=== PATIENT | male | born 1980 | race American Indian/Alaskan Native ===

== ENCOUNTER 2018-04-07 23:21 | Emergency (ER) | payer MEDICAID ==
[2018-04-08] MEDS ORDERED: ASPIRIN PO ONE (00:38)
[2018-04-08 00:56] LABS: Basophils # (Auto) 0.1 K/mm3 (0.0-0.1); Basophils % (Auto) 0.7 % (0.0-1.8); Eosinophils # (Auto) 0.1 K/mm3 (0.0-0.4); Eosinophils % (Auto) 1.5 % (0.0-4.3); Hematocrit 35.6 % (35.5-45.6); Lymphocytes # (Auto) 2.6 K/mm3 (1.2-5.4); Lymphocytes % (Auto) 34.7 % (13.4-35.0); Mean Corpuscular HGB Conc 34 % (32-34); Mean Corpuscular Hemoglobin 30 pg (28-32); Mean Corpuscular Volume 89 fl (84-94); Monocytes # (Auto) 0.8 K/mm3 (0.0-0.8); Monocytes % (Auto) 10.1 % (0.0-7.3); Platelet Count 245 K/mm3 (140-440); Red Blood Count 4.02 M/mm3 (3.65-5.03); Red Cell Distribution Width 15.2 % (13.2-15.2)
[2018-04-08 01:15] LABS: BUN/Creatinine Ratio 13; Blood Urea Nitrogen 12 mg/dL (9-20); Calcium 9.6 mg/dL (8.4-10.2); Hemolysis Index 6
[2018-04-08 01:17] LABS: INR 0.96 (0.87-1.13)
--- NOTE | 2018-04-08 08:00 | Emergency Department Report ---
<JOHANNA JIM - Last Filed: 04/08/18 09:04> ED Chest Pain HPI - General Chief Complaint: Chest Pain Stated Complaint: CP Time Seen by Provider: 04/08/18 08:00 - History of Present Illness Initial Comments: Attending physician note, 0900 hrs. I have seen and examined this chronically ill gentleman with history of pre- existing DVT who has been on apex event for the past 3 years, and who is complaining today of discomfort in his left anterolateral chest, which is up a [id number] aching nature, increased with some movement or deep breathing, but without secondary cardiac symptoms, no diaphoresis, and no nausea or vomiting. He also has secondary discomfort in his lower extremities, although this is somewhat chronic, as he has some chronic swelling of the extremities, and reports that he takes medication for blood pressure, and one of these is a diuretic. He also has schizophrenia/schizoaffective disorder, which requires him to live in a fdc, and his caregiver is with him, with a past medical history of his routine medications, which include antihypertensive, diuretic, and antipsychotic medications. Patient is clinically stable of examination, he is quite obese, but lungs are essentially clear to auscultation, abdomen is benign, and legs show chronic obesity and generalized swelling secondary to chronic venous insufficiency, with secondary skin changes and discoloration, and mild 1+ pedal edema as well. He likely has vascular insufficiency as cause of his swelling, which will likely make this recurrent, and this is aggravated by his obesity as well. Venous Doppler ultrasound scanning shows chronic insufficiency of both lower extremities, which is apparently fairly extensive, but no acute findings and no occlusion. He is currently adequately managed with aixaban, will be given additional diuretic, and referred home for symptomatically treatment and follow- up with his primary care physician. - Related Data Home Medications Medication Instructions Recorded Confirmed Last Taken LORazepam [Ativan] 1 mg PO TID 06/06/15 06/06/15 Unknown QUEtiapine [SEROquel] 200 mg PO QDAY 06/06/15 06/06/15 Unknown Apixaban [Eliquis] 5 mg PO BID 04/08/18 04/08/18 Unknown Benztropine [Cogentin] 1 mg PO QHS 04/08/18 04/08/18 Unknown Docusate Sodium [Stool Softener] 100 mg PO BID 04/08/18 04/08/18 Unknown Hydrochlorothiazide [HCTZ] 25 mg PO QDAY 04/08/18 04/08/18 Unknown Polyethylene Glycol 3350 17 gm PO DAILY 04/08/18 04/08/18 Unknown [Smoothlax] Simvastatin [Zocor TAB] 40 mg PO QHS 04/08/18 04/08/18 Unknown Topiramate [Topamax TAB] 50 mg PO BID 04/08/18 04/08/18 Unknown Previous Rx's Medication Instructions Recorded Last Taken Type Ondansetron [Zofran Odt] 4 mg PO Q8H PRN #12 tab.rapdis 04/08/18 Unknown Rx Allergies Allergy/AdvReac Type Severity Reaction Status Date / Time No Known Allergies Allergy Verified 04/08/18 00:37 ED Review of Systems ROS: Stated complaint: CP Other details as noted in HPI ED Past Medical Hx - Medications Home Medications: Home Medications Medication Instructions Recorded Confirmed Last Taken Type LORazepam [Ativan] 1 mg PO TID 06/06/15 06/06/15 Unknown History QUEtiapine [SEROquel] 200 mg PO QDAY 06/06/15 06/06/15 Unknown History Apixaban [Eliquis] 5 mg PO BID 04/08/18 04/08/18 Unknown History Benztropine [Cogentin] 1 mg PO QHS 04/08/18 04/08/18 Unknown History Docusate Sodium [Stool Softener] 100 mg PO BID 04/08/18 04/08/18 Unknown History Hydrochlorothiazide [HCTZ] 25 mg PO QDAY 04/08/18 04/08/18 Unknown History Ondansetron [Zofran Odt] 4 mg PO Q8H PRN #12 tab.rapdis 04/08/18 Unknown Rx Polyethylene Glycol 3350 17 gm PO DAILY 04/08/18 04/08/18 Unknown History [Smoothlax] Simvastatin [Zocor TAB] 40 mg PO QHS 04/08/18 04/08/18 Unknown History Topiramate [Topamax TAB] 50 mg PO BID 04/08/18 04/08/18 Unknown History ED Course Vital Signs 04/08/18 04/08/18 04/08/18 00:32 06:16 06:30 Temperature 97.8 F Pulse Rate 81 69 Respiratory 17 20 Rate Blood Pressure 147/89 120/77 O2 Sat by Pulse 100 98 Oximetry 04/08/18 04/08/18 04/08/18 06:46 06:49 07:00 Temperature Pulse Rate 68 86 Respiratory 15 16 17 Rate Blood Pressure 120/77 120/77 O2 Sat by Pulse 86 99 97 Oximetry 04/08/18 04/08/18 04/08/18 07:28 07:30 07:46 Temperature Pulse Rate 67 87 Respiratory 18 13 Rate Blood Pressure 120/77 128/78 128/78 O2 Sat by Pulse 95 100 Oximetry 04/08/18 04/08/18 08:00 08:37 Temperature Pulse Rate 80 Respiratory 12 15 Rate Blood Pressure 128/78 O2 Sat by Pulse 100 Oximetry ED Medical Decision Making - Lab Data Result diagrams: 04/08/18 00:40 04/08/18 00:40 Critical care attestation.: If time is entered above; I have spent that time in minutes in the direct care of this critically ill patient, excluding procedure time. ED Disposition Clinical Impression: Edema, lower extremity, Lower extremity pain, bilateral, Atypical chest pain, Nausea alone, Morbid obesity with BMI of 40.0-44.9, adult, H/O deep venous thrombosis Chronic deep vein thrombosis (DVT) of both lower extremities Qualifiers: Affected thrombotic vein of extremity: other lower extremity vein Qualified Code(s): I82.593 - Chronic embolism and thrombosis of other specified deep vein of lower extremity, bilateral Disposition: - TO HOME OR SELFCARE Condition: Stable Instructions: Chest Pain (ED), Deep Venous Thrombosis (ED), Acute Nausea and Vomiting (ED), Leg Edema (ED), Arthralgia (ED) Additional Instructions: Please call your flight operations inspector and your primary care physician today to schedule an appointment for follow-up visit. Director Of Informatics responded that he will call to make an appointment to follow next week. Takes Zofran for nausea Continue to take Eliquis for chronic DVT Take Ultram as prescribed by a primary care for chronic pain Prescriptions: Ondansetron [Zofran Odt] 4 mg PO Q8H PRN #12 tab.rapdis PRN Reason: Nausea And Vomiting Referrals: PRIMARY CARE, [Primary Care Provider] - 04/11/18 your flight operations inspector, Dr. Goodwin [Other] - 04/11/18 Forms: Accompanied Note <DEANNA SY - Last Filed: 04/08/18 11:06> ED Chest Pain HPI - General Source: patient, family (caregiver) Mode of arrival: Stretcher Limitations: No Limitations - History of Present Illness Initial Comments: Patient reports that he is having chest pain on the mid to left chest area. He states that he is bilateral lower leg pain. Patient is a history of DVT. Denies any shortness of breath but reports some nausea. Patient states that he is upset because he lost his job yesterday. He has a history of bipolar, schizoaffective disorder and lives with caregiver. Pain to the legs is 6 out of 10 and chest is 6 out of 10 chest feels sharp and legs is achy in. Caregiver reported that patient has a primary care physician was Dr. Saenz and also a flight operations inspector. Patient is on HCTZ as diuretic for chronic lower extremity pain. He said he had a DVT to his legs 3 years ago and he is non-L Oquist. He denies any shortness of breath. Patient is on Topamax, L Oquist, hydrochlorothiazide, Seroquel and Cogentin. He has a history of high cholesterol and is on simvastatin and is also on iNega. Nothing makes pain better and nothing makes it worse. No pain medication given prior to coming to the emergency room. MD Complaint: chest pain, other (bilateral leg pain and increased swelling) -: Last night Onset: during rest, during exertion Pain Location: left chest, other (mid chest) Pain Radiation: none, other (bilateral leg) Severity scale (0 -10): 6 Quality: aching, sharp Consistency: constant Improves With: nothing (chest) Worsens With: palpation (legs), movement (the legs) Heart Score - HEART Score History: Moderately suspicious EKG: Normal Age: < 45 Risk factors: > 3 risk factors or hx of atherosclerotic disease Troponin: < normal limit HEART Score: 3 - Critical Actions Critical Actions: 0-3 pts:0.9-1.7%risk of adverse cardiac event.Candidate for discharge ED Review of Systems Comment: All other systems reviewed and negative Constitutional: denies: chills, fever Eyes: denies: eye pain, eye discharge, vision change ENT: denies: congestion Respiratory: no symptoms reported, shortness of breath, SOB with exertion. denies: cough, SOB at rest, wheezing Cardiovascular: chest pain, edema. denies: palpitations, dyspnea on exertion, orthopnea, syncope, paroxysmal nocturnal dyspnea Gastrointestinal: nausea. denies: abdominal pain, vomiting, diarrhea, constipation, hematemesis, melena, hematochezia Genitourinary: denies: urgency, dysuria Musculoskeletal: arthralgia. denies: back pain, joint swelling, myalgia Skin: denies: rash, lesions Neurological: denies: headache, weakness, numbness, paresthesias, confusion Psychiatric: depression. denies: anxiety, auditory hallucinations, visual hallucinations, homicidal thoughts, suicidal thoughts Hematological/Lymphatic: denies: easy bleeding, easy bruising, swollen glands ED Past Medical Hx - Past Medical History Previous Medical History?: Yes Hx Hypertension: Yes (on HCTZ) Hx Deep Vein Thrombosis: Yes (on adequate) Additional medical history: Chronic edema. Chronic leg pain. Psych disorder - Surgical History Past Surgical History?: No - Family History Family history: CAD/NH, hypertension - Social History Smoking Status: Former Smoker Substance Use Type: None Other Social History: Patient lives with caregiver ED Physical Exam - General Limitations: No Limitations General appearance: alert, in no apparent distress - Head Head exam: Present: atraumatic, normocephalic, normal inspection - Eye Eye exam: Present: normal appearance, PERRL, EOMI Pupils: Present: normal accommodation - ENT ENT exam: Present: normal exam, normal orophraynx, mucous membranes moist - Neck Neck exam: Present: normal inspection, full ROM. Absent: tenderness, lymphadenopathy - Respiratory Respiratory exam: Present: normal lung sounds bilaterally. Absent: respiratory distress, wheezes, rales, rhonchi, stridor, chest wall tenderness, accessory muscle use, decreased breath sounds, prolonged expiratory - Cardiovascular Cardiovascular Exam: Present: regular rate, normal rhythm. Absent: systolic murmur, diastolic murmur - GI/Abdominal GI/Abdominal exam: Present: soft, distended, normal bowel sounds, other ( truncal obesity). Absent: tenderness, guarding, rebound, rigid, mass, bruit, pulsatile mass, hernia - Extremities Exam Extremities exam: Present: normal inspection, full ROM, tenderness (both legs), normal capillary refill, pedal edema, other (bilateral lower extremity swelling , no clubbing or cyanosis. +2 pulses.). Absent: joint swelling, calf tenderness - Back Exam Back exam: Present: normal inspection, full ROM. Absent: tenderness - Neurological Exam Neurological exam: Present: alert, oriented X3, normal gait - Psychiatric Psychiatric exam: Present: normal affect, normal mood - Skin Skin exam: Present: warm, dry, intact, normal color. Absent: rash ED Course Vital Signs 04/08/18 04/08/18 04/08/18 00:32 06:16 06:30 Temperature 97.8 F Pulse Rate 81 69 Respiratory 17 20 Rate Blood Pressure 147/89 120/77 O2 Sat by Pulse 100 98 Oximetry 04/08/18 04/08/18 04/08/18 06:46 06:49 07:00 Temperature Pulse Rate 68 86 Respiratory 15 16 17 Rate Blood Pressure 120/77 120/77 O2 Sat by Pulse 86 99 97 Oximetry 04/08/18 04/08/18 04/08/18 07:28 07:30 07:46 Temperature Pulse Rate 67 87 Respiratory 18 13 Rate Blood Pressure 120/77 128/78 128/78 O2 Sat by Pulse 95 100 Oximetry 04/08/18 04/08/18 08:00 08:37 Temperature Pulse Rate 80 Respiratory 12 15 Rate Blood Pressure 128/78 O2 Sat by Pulse 100 Oximetry Vital Signs 04/08/18 04/08/18 04/08/18 00:32 06:16 06:30 Temperature 97.8 F Pulse Rate 81 69 Respiratory 17 20 Rate Blood Pressure 147/89 120/77 O2 Sat by Pulse 100 98 Oximetry 04/08/18 04/08/18 04/08/18 06:46 06:49 07:00 Temperature Pulse Rate 68 86 Respiratory 15 16 17 Rate Blood Pressure 120/77 120/77 O2 Sat by Pulse 86 99 97 Oximetry 04/08/18 04/08/18 04/08/18 07:28 07:30 07:46 Temperature Pulse Rate 67 87 Respiratory 18 13 Rate Blood Pressure 120/77 128/78 128/78 O2 Sat by Pulse 95 100 Oximetry 04/08/18 04/08/18 08:00 08:37 Temperature Pulse Rate 80 Respiratory 12 15 Rate Blood Pressure 128/78 O2 Sat by Pulse 100 Oximetry - Reevaluation(s) Reevaluation #1: 04/08/18 08:32 She given [place] 7.5/325 mg 1 tablet and Phenergan 25 mg by mouth to help with pain and nausea. Troponins are within normal limits, EKG stable lab works are stable. Elaborated with Dr. Jim who is the attending physician and he saw patient . BNP, chest x-ray and bilateral lower extremity venous Doppler studies ordered and pending. Plan discussed patient and I also discussed lab results and he voiced understanding. Patient stable at present. He still said he is having chest pain located midsternal area with bilateral lower extremity pain. WILL reevaluate after pain medication. Patient to receive aspirin that was ordered with chest pain protocol. Reevaluation #2: 04/08/18 08:50 Patient is stable, pain is controlled, chest x-rays is normal and BNP is stable. Denies any nausea present Reevaluation #3: 04/08/18 09:58 Patient is stable at present, venous Doppler bilateral lower extremity with chronic DVT. No acute DVT seen. Denies any chest pain, nausea or neck pain at present. Patient sitting up in bed and studies to go home. RAMOS score - Ramos Score Age > 65: (0) No Aspirin use within the Past 7 Days: (0) No 3 or more CAD Risk Factors: (0) No 2 or more Angina events in past 24 hrs: (0) No Known CAD with more than 50% Stenosis: (0) No Elevated Cardiac Markers: (0) No ST Deviation Greater than 0.5mm: (0) No RAMOS Score: 0 ED Medical Decision Making - Lab Data Result diagrams: 04/08/18 00:40 04/08/18 00:40 Lab Results 04/08/18 04/08/18 04/08/18 Range/Units 00:40 00:40 00:40 WBC 7.6 (4.5-11.0) K/mm3 RBC 4.02 (3.65-5.03) M/mm3 Hgb 12.0 (11.8-15.2) gm/dl Hct 35.6 (35.5-45.6) % MCV 89 (84-94) fl MCH 30 (28-32) pg MCHC 34 (32-34) % RDW 15.2 (13.2-15.2) % Plt Count 245 (140-440) K/mm3 Lymph % (Auto) 34.7 (13.4-35.0) % [place] % (Auto) 10.1 H (0.0-7.3) % Eos % (Auto) 1.5 (0.0-4.3) % Baso % (Auto) 0.7 (0.0-1.8) % Lymph # 2.6 (1.2-5.4) K/mm3 [place] # 0.8 (0.0-0.8) K/mm3 Eos # 0.1 (0.0-0.4) K/mm3 Baso # 0.1 (0.0-0.1) K/mm3 Seg Neutrophils % 53.0 (40.0-70.0) % Seg Neutrophils # 4.0 (1.8-7.7) K/mm3 PT 13.3 (12.2-14.9) Sec. INR 0.96 (0.87-1.13) Sodium 138 (137-145) mmol/L Potassium 3.7 (3.6-5.0) mmol/L Chloride 98.7 (98-107) mmol/L Carbon Dioxide 27 (22-30) mmol/L Anion Gap 16 mmol/L BUN 12 (9-20) mg/dL Creatinine 0.9 (0.8-1.5) mg/dL Estimated GFR > 60 ml/min BUN/Creatinine Ratio 13 % Glucose 94 (75-100) mg/dL Calcium 9.6 (8.4-10.2) mg/dL Troponin T < 0.010 (0.00-0.029) ng/mL NT-Pro-B Natriuret Pep (0-450) pg/mL 04/08/18 04/08/18 04/08/18 Range/Units 03:28 06:39 06:39 WBC (4.5-11.0) K/mm3 RBC (3.65-5.03) M/mm3 Hgb (11.8-15.2) gm/dl Hct (35.5-45.6) % MCV (84-94) fl MCH (28-32) pg MCHC (32-34) % RDW (13.2-15.2) % Plt Count (140-440) K/mm3 Lymph % (Auto) (13.4-35.0) % [place] % (Auto) (0.0-7.3) % Eos % (Auto) (0.0-4.3) % Baso % (Auto) (0.0-1.8) % Lymph # (1.2-5.4) K/mm3 [place] # (0.0-0.8) K/mm3 Eos # (0.0-0.4) K/mm3 Baso # (0.0-0.1) K/mm3 Seg Neutrophils % (40.0-70.0) % Seg Neutrophils # (1.8-7.7) K/mm3 PT (12.2-14.9) Sec. INR (0.87-1.13) Sodium (137-145) mmol/L Potassium (3.6-5.0) mmol/L Chloride (98-107) mmol/L Carbon Dioxide (22-30) mmol/L Anion Gap mmol/L BUN (9-20) mg/dL Creatinine (0.8-1.5) mg/dL Estimated GFR ml/min BUN/Creatinine Ratio % Glucose (75-100) mg/dL Calcium (8.4-10.2) mg/dL Troponin T < 0.010 < 0.010 (0.00-0.029) ng/mL NT-Pro-B Natriuret Pep 11.12 (0-450) pg/mL - EKG Data -: EKG Interpreted by Dc (Dr. Jim attending physician) EKG shows normal: sinus rhythm (65 bpm) Rate: normal - EKG Data Interpretation: no acute changes, normal EKG - Radiology Data Radiology results: report reviewed VAHE BETANCOURT Male : 1980 MedRec# [id number] 04/08/18 09:06 - Radiology Dept. Note by SKIP GRAVES [facility] Num: [id number] : 1980 Patient Age: 37 VASCULAR LAB.PRELIMINARY REPORT. BLE VENOUS DUPLEX DONE. TECHNICALLY LIMITED DUE TO HABITUS/BLE EDEMA. EVIDENCE OF CHRONIC DVT IN THE RT.CFV,RT.SFV, RT.POPLITEAL VEIN AND LT.CFV. DEANNA ASHTON) INFORMED AT 0905. Initialized on 04/08/18 09:06 - END OF NOTE VAHE BETANCOURT Male : 1980 MedRec# [id number] 04/08/18 09:06 - Radiology Dept. Note by SKIP GRAVES [facility] Num: [id number] : 1980 Patient Age: 37 VASCULAR LAB.PRELIMINARY REPORT. BLE VENOUS DUPLEX DONE. TECHNICALLY LIMITED DUE TO HABITUS/BLE EDEMA. EVIDENCE OF CHRONIC DVT IN THE RT.CFV,RT.SFV, RT.POPLITEAL VEIN AND LT.CFV. DEANNA ASHTON) INFORMED AT 0905. Initialized on 04/08/18 09:06 - END OF NOTE Final radiology report to follow Patient: VAHE BETANCOURT MR#: [id number] : 1980 Acct:[id number] Age/Sex: 37 / M ADM Date: 04/07/18 Loc: ED Attending Dr: Ordering Physician: NEISHA BALBUENA Date of Service: 04/08/18 Procedure(s): XR chest routine 2V Accession Number(s): [id number] cc: NEISHA BALBUENA Fluoro Time In Minutes: CHEST 2 VIEWS INDICATION: Chest pain. COMPARISON: 06/06/2015. FINDINGS: PA and lateral chest radiographs demonstrate normal cardiomediastinal silhouette. Clear lungs. Intact bones. CONCLUSION: No acute disease in the chest. Thank you for the opportunity to participate in this patient's care. Transcribed By: RS Dictated By: YMRA CARSON MD Electronically Authenticated By: MYRA ACRSON MD Signed Date/Time: 04/08/18830 DD/ 9 TD/TT: 04/08/18830 - Medical Decision Making ED course: Patient brought to the hospital last night reporting that he's been having bilateral lower extremity pain and he has chronic swelling to his legs and his being seen by Dr. Leger who is his flight operations inspector and Dr. Etienne was primary care physician. Patient's is on HCTZ and said that it does not help in his leg swelling. He takes alcohol last for past DVT. Ultrasound venous Doppler bilateral lower extremity shows chronic DVT without any acute findings. Labs are stable to include troponin and BNP. EKG normal sinus rhythm. Chest x-ray reveals no acute cardiopulmonary findings. Patient was given [place] 7.5/ 325 mg one by mouth for pain which relieved his pain, Phenergan 25 mg by mouth for nausea. She is nauseous relief. He was Also given 50 mg of HCTZ to hopefully decrease in swelling today. I discussed lab results and x-rays, ultrasound results the patient and he voiced understanding. Patient to follow up with his flight operations inspector and his primary care physician to call today to schedule an appointment. Patient and caregiver is understanding of discharge instructions and also Tylenol and sodium to decrease swelling in legs. Patient discharged with prescription for Zofran and to continue his Ultram at home. He was advised chest pain returned to return to emergency room. VAHE BETANCOURT Male : 1980 [facility]# [id number] 04/08/18 09:06 - Radiology Dept. Note by SKIP GRAVES Acct Num: [id number] : 1980 Patient Age: 37 VASCULAR LAB.PRELIMINARY REPORT. BLE VENOUS DUPLEX DONE. TECHNICALLY LIMITED DUE TO HABITUS/BLE EDEMA. EVIDENCE OF CHRONIC DVT IN THE RT.CFV,RT.SFV, RT.POPLITEAL VEIN AND LT.CFV. DEANNA ASHTON) INFORMED AT 0905. Initialized on 04/08/18 09:06 - END OF NOTE Patient: VAHE BETANCOURT MR#: [id number] : 1980 Acct:[id number] Age/Sex: 37 / M ADM Date: 04/07/18 Loc: ED Attending Dr: Ordering Physician: NEISHA BALBUENA Date of Service: 04/08/18 Procedure(s): XR chest routine 2V Accession Number(s): [id number] cc: NEISHA BALBUENA Fluoro Time In Minutes: CHEST 2 VIEWS INDICATION: Chest pain. COMPARISON: 06/06/2015. FINDINGS: PA and lateral chest radiographs demonstrate normal cardiomediastinal silhouette. Clear lungs. Intact bones. CONCLUSION: No acute disease in the chest. Thank you for the opportunity to participate in this patient's care. Transcribed By: RS Dictated By: MYRA CARSON MD Electronically Authenticated By: MYRA CARSON MD Signed Date/Time: 04/08/18830 DD/ 9 TD/TT: 04/08/18830 - Differential Diagnosis ACS, atypical chest pain, dyspepsia, chronic DVT, chf, pna, edema ED Disposition Is pt being admited?: No Does the pt Need Aspirin: No
[2018-04-08] MEDS ORDERED: PHENERGAN PO ONE (08:05)
[2018-04-08] MEDS ORDERED: NORCO 7.5/325 PO ONE (08:05)
[2018-04-08] MEDS ORDERED: ASPIRIN ONE (08:35)
--- NOTE | 2018-04-08 08:38 | XRay Report ---
CHEST 2 VIEWS INDICATION: Chest pain. COMPARISON: 06/06/2015. FINDINGS: PA and lateral chest radiographs demonstrate normal cardiomediastinal silhouette. Clear lungs. Intact bones. CONCLUSION: No acute disease in the chest. Thank you for the opportunity to participate in this patient's care.
[2018-04-08] MEDS ORDERED: HCTZ PO ONE (09:08)
--- NOTE | 2018-04-08 10:11 | Vascular Lab Report ---
LOWER EXTREMITY VENOUS DUPLEX: REASON FOR EXAM: Pain and swelling of the lower extremities. COMMENTS ON THE RIGHT: Extensive, partially occluding, chronic thrombosis seen in the common femoral vein, superficial femoral vein and the popliteal vein. No acute thrombus is seen. The remaining veins visualized are freely compressible without evidence of internal echogenicity. Spontaneous and phasic flow is present proximally. COMMENTS ON THE LEFT: Partially occluding chronic thrombus is seen in the common femoral vein. No acute deep venous thrombosis is seen. The remaining veins visualized are freely compressible without evidence of internal echogenicity. Spontaneous and phasic flow is present proximally. IMPRESSION: Extensive chronic partially occluding thrombus seen in the right lower extremity. No acute deep venous thrombosis is seen in the right lower extremity. Chronic partially occluding thrombus in the left common femoral vein. No acute deep venous thrombosis is seen in the left lower extremity. Study is technically limited due to body habitus.
[2018-04-08 13:31] VITALS: BP 128/72
== END 2018-04-08 11:23 | disposition home or self-care (01) ==
LOC: ED 23:21
DX: I82.593 Chronic embolism and thrombosis of other specified deep vein of lower extremity, bilateral (principal); I10 Essential (primary) hypertension; R60.9 Edema, unspecified; R07.89 Other chest pain; E66.01 Morbid (severe) obesity due to excess calories; Z68.41 Body mass index [BMI] 40.0-44.9, adult
CPT/HCPCS: 36415; 71046; 80048; 83880; 84484; 85025; 85610; 93005; 93010; 93970; Q0169

== ENCOUNTER 2019-08-08 16:33 | Emergency (ER) | payer MEDICAID ==
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
[2019-08-08 17:42] LABS: Basophils % (Auto) 0.3 % (0.0-1.8); Eosinophils # (Auto) 0.1 K/mm3 (0.0-0.4); Eosinophils % (Auto) 1.4 % (0.0-4.3); Lymphocytes # (Auto) 2.6 K/mm3 (1.2-5.4); Mean Corpuscular HGB Conc 34 % (32-34); Mean Corpuscular Volume 94 fl (84-94); Monocytes # (Auto) 0.7 K/mm3 (0.0-0.8); Monocytes % (Auto) 8.8 % (0.0-7.3); Platelet Count 196 K/mm3 (140-440); Red Blood Count 4.04 M/mm3 (3.65-5.03)
[2019-08-08 17:50] LABS: BUN/Creatinine Ratio 10; Blood Urea Nitrogen 9 mg/dL (9-20); Calcium 9.3 mg/dL (8.4-10.2); Hemolysis Index 9
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
[2019-08-08 18:07] LABS: Bacteria,Urine 1+ /HPF (Negative); Bilirubin,Urine NEG (Negative); Blood,Urine NEG (Negative); Color,Urine Straw (Yellow); Mucus,Urine FEW /HPF; Protein,Urine <15 mg/dL mg/dL (Negative); RBC,Urine < 1.0 /HPF (0.0-6.0); Urobilinogen,Urine < 2.0 mg/dL (<2.0)
[2019-08-08 18:19] LABS: Amphetamine Screen,Urine PRESUMPTIVE NEGATIVE; Benzodiazepines Screen,Urine PRESUMPTIVE NEGATIVE; Cannabinoid Screen,Urine PRESUMPTIVE NEGATIVE; Cocaine Screen,Urine PRESUMPTIVE NEGATIVE; Methadone Screen,Urine PRESUMPTIVE NEGATIVE; Opiate Screen,Urine PRESUMPTIVE NEGATIVE
[2019-08-08 21:48] VITALS: BP 140/87
== END 2019-08-08 20:10 | disposition home or self-care (01) ==
LOC: ED 16:33
DX: S01.81XA Laceration without foreign body of other part of head, initial encounter (principal); F31.9 Bipolar disorder, unspecified; F20.9 Schizophrenia, unspecified; I10 Essential (primary) hypertension; Z79.899 Other long term (current) drug therapy; Z79.01 Long term (current) use of anticoagulants; Z86.718 Personal history of other venous thrombosis and embolism; Y04.0XXA Assault by unarmed brawl or fight, initial encounter; Y93.89 Activity, other specified; Y92.89 Other specified places as the place of occurrence of the external cause; Y99.8 Other external cause status
CPT/HCPCS: 36415; 80048; 80307; 80320; 81001; 85025; G0480

== ENCOUNTER 2019-12-30 20:58 | Emergency (ER) | payer MEDICAID ==
[2019-12-30 21:29] VITALS: BP 148/83
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
[2019-12-30] MEDS ORDERED: AMOXICILLIN/K CLAV 875/125MG TAB PO ONE (22:09)
[2019-12-30 22:55] LABS: Bilirubin,Urine NEG (Negative); Blood,Urine NEG (Negative); Color,Urine Yellow (Yellow); Mucus,Urine FEW /HPF; Protein,Urine <15 mg/dL mg/dL (Negative); Urobilinogen,Urine < 2.0 mg/dL (<2.0); WBC,Urine < 1.0 /HPF (0.0-6.0)
[2019-12-30 22:58] LABS: Amphetamine Screen,Urine PRESUMPTIVE NEGATIVE; Benzodiazepines Screen,Urine PRESUMPTIVE NEGATIVE; Cannabinoid Screen,Urine PRESUMPTIVE NEGATIVE; Cocaine Screen,Urine PRESUMPTIVE NEGATIVE; Methadone Screen,Urine PRESUMPTIVE NEGATIVE; Opiate Screen,Urine PRESUMPTIVE NEGATIVE
[2019-12-30] MEDS ORDERED: TETANUS,DIPH,PERTUSS(ACELL) VACCINE 0.5 ML SYRINGE IM ONE (23:09)
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
[2019-12-30 23:19] LABS: Eosinophils # (Auto) 0.1 K/mm3 (0.0-0.4); Eosinophils % (Auto) 0.6 % (0.0-4.3); Hematocrit 36.9 % (35.5-45.6); Hemoglobin 12.6 gm/dl (11.8-15.2); Lymphocytes # (Auto) 2.7 K/mm3 (1.2-5.4); Lymphocytes % (Auto) 31.2 % (13.4-35.0); Mean Corpuscular HGB Conc 34 % (32-34); Mean Corpuscular Volume 93 fl (84-94); Monocytes # (Auto) 0.7 K/mm3 (0.0-0.8); Platelet Count 180 K/mm3 (140-440); Red Blood Count 3.96 M/mm3 (3.65-5.03); Red Cell Distribution Width 15.9 % (13.2-15.2)
[2019-12-30 23:29] LABS: Alanine Aminotransferase 31 units/L (7-56); Albumin 4.8 g/dL (3.9-5); BUN/Creatinine Ratio 14; Blood Urea Nitrogen 11 mg/dL (9-20); Calcium 9.8 mg/dL (8.4-10.2); Hemolysis Index 7
[2019-12-31] MEDS ORDERED: ACETAMINOPHEN 325 MG TAB ONE (00:21)
[2019-12-31] MEDS ORDERED: ACETAMINOPHEN 325 MG TAB PO ONE (02:17)
== END 2019-12-31 02:16 | disposition home or self-care (01) ==
LOC: ED 20:58
DX: S61.552A Open bite of left wrist, initial encounter (principal); Y04.1XXA Assault by human bite, initial encounter; Y93.89 Activity, other specified; Y92.89 Other specified places as the place of occurrence of the external cause; Y99.8 Other external cause status
CPT/HCPCS: 36415; 80053; 80164; 80307; 80320; 81001; 85025; 90471; 90715; G0480

== ENCOUNTER 2020-04-13 02:18 | Emergency (ER) | payer MEDICAID ==
[2020-04-13 02:25] VITALS: BP 154/107
--- NOTE | 2020-04-13 03:51 | Emergency Department Report ---
- General Chief complaint: Extremity Injury, Lower Stated complaint: RIGHT LEG PAIN Source: patient Mode of arrival: Ambulatory Limitations: Other - History of Present Illness Initial comments: 39-year-old -[place] male with a medical history of bipolar, DVT that is currently on blood thinners chronic lower leg edema chronic leg pain and hypertension presents to the emergency room for right lower leg pain that started last night. Patient is taken nothing for his pain. Patient states he stopped going to the wound care clinic because his caregiver stopped taking them. Patient denies any fever chills no nausea no vomiting. MD complaint: discoloration Onset/Timin -: days(s) Location: RLE Severity scale (0 -10): 4 Quality: aching Consistency: intermittent Improves with: none Worsens with: none Context: none Associated symptoms: denies other symptoms Treatments Prior to Arrival: none - Related Data Home Medications Medication Instructions Recorded Confirmed Last Taken LORazepam [Ativan] 1 mg PO TID 06/06/15 04/08/18 Unknown QUEtiapine [SEROquel] 600 mg PO QHS 06/06/15 04/08/18 Unknown Apixaban [Eliquis] 5 mg PO BID 04/08/18 04/08/18 Unknown Benztropine [Cogentin] 1 mg PO QHS 04/08/18 04/08/18 Unknown Docusate Sodium [Stool Softener] 100 mg PO BID 04/08/18 04/08/18 Unknown Polyethylene Glycol 3350 17 gm PO DAILY 04/08/18 04/08/18 Unknown [Smoothlax] Simvastatin [Zocor TAB] 40 mg PO QHS 04/08/18 04/08/18 Unknown Topiramate [Topamax TAB] 50 mg PO BID 04/08/18 04/08/18 Unknown hydroCHLOROthiazide [HCTZ] 25 mg PO QDAY 04/08/18 04/08/18 Unknown Previous Rx's Medication Instructions Recorded Last Taken Type Ondansetron [Zofran Odt] 4 mg PO Q8H PRN #12 tab.rapdis 04/08/18 Unknown Rx Amoxicillin/Potassium Clav 1 each PO BID #14 tablet 12/31/19 Unknown Rx [Augmentin 875-125 Tablet] Clindamycin [Clindamycin CAP] 300 mg PO Q8H 10 Days #30 cap 04/13/20 Unknown Rx Allergies Allergy/AdvReac Type Severity Reaction Status Date / Time No Known Allergies Allergy Verified 07/27/19 17:23 Abscess Boil HPI - HPI Chief Complaint: Extremity Injury, Lower Stated Complaint: RIGHT LEG PAIN Home Medications: Home Medications Medication Instructions Recorded Confirmed Last Taken LORazepam [Ativan] 1 mg PO TID 06/06/15 04/08/18 Unknown QUEtiapine [SEROquel] 600 mg PO QHS 06/06/15 04/08/18 Unknown Apixaban [Eliquis] 5 mg PO BID 04/08/18 04/08/18 Unknown Benztropine [Cogentin] 1 mg PO QHS 04/08/18 04/08/18 Unknown Docusate Sodium [Stool Softener] 100 mg PO BID 04/08/18 04/08/18 Unknown Polyethylene Glycol 3350 17 gm PO DAILY 04/08/18 04/08/18 Unknown [Smoothlax] Simvastatin [Zocor TAB] 40 mg PO QHS 04/08/18 04/08/18 Unknown Topiramate [Topamax TAB] 50 mg PO BID 04/08/18 04/08/18 Unknown hydroCHLOROthiazide [HCTZ] 25 mg PO QDAY 04/08/18 04/08/18 Unknown Previous Rx's Medication Instructions Recorded Last Taken Type Ondansetron [Zofran Odt] 4 mg PO Q8H PRN #12 tab.rapdis 04/08/18 Unknown Rx Amoxicillin/Potassium Clav 1 each PO BID #14 tablet 12/31/19 Unknown Rx [Augmentin 875-125 Tablet] Clindamycin [Clindamycin CAP] 300 mg PO Q8H 10 Days #30 cap 04/13/20 Unknown Rx Allergies/Adverse Reactions: Allergies Allergy/AdvReac Type Severity Reaction Status Date / Time No Known Allergies Allergy Verified 07/27/19 17:23 ED Review of Systems ROS: Stated complaint: RIGHT LEG PAIN Other details as noted in HPI Comment: All other systems reviewed and negative ED Past Medical Hx - Past Medical History Hx Hypertension: Yes (on HCTZ) Hx Deep Vein Thrombosis: Yes (on adequate) Hx Psychiatric Treatment: Yes (Bipolar) Additional medical history: Chronic edema. Chronic leg pain. Psych disorder - Surgical History Additional Surgical History: leg surgery - Social History Smoking Status: Never Smoker Substance Use Type: Alcohol - Medications Home Medications: Home Medications Medication Instructions Recorded Confirmed Last Taken Type LORazepam [Ativan] 1 mg PO TID 06/06/15 04/08/18 Unknown History QUEtiapine [SEROquel] 600 mg PO QHS 06/06/15 04/08/18 Unknown History Apixaban [Eliquis] 5 mg PO BID 04/08/18 04/08/18 Unknown History Benztropine [Cogentin] 1 mg PO QHS 04/08/18 04/08/18 Unknown History Docusate Sodium [Stool Softener] 100 mg PO BID 04/08/18 04/08/18 Unknown History Ondansetron [Zofran Odt] 4 mg PO Q8H PRN #12 tab.rapdis 04/08/18 Unknown Rx Polyethylene Glycol 3350 17 gm PO DAILY 04/08/18 04/08/18 Unknown History [Smoothlax] Simvastatin [Zocor TAB] 40 mg PO QHS 04/08/18 04/08/18 Unknown History Topiramate [Topamax TAB] 50 mg PO BID 04/08/18 04/08/18 Unknown History hydroCHLOROthiazide [HCTZ] 25 mg PO QDAY 04/08/18 04/08/18 Unknown History Amoxicillin/Potassium Clav 1 each PO BID #14 tablet 12/31/19 Unknown Rx [Augmentin 875-125 Tablet] Clindamycin [Clindamycin CAP] 300 mg PO Q8H 10 Days #30 cap 04/13/20 Unknown Rx ED Physical Exam - General Limitations: Other General appearance: alert, in no apparent distress - Head Head exam: Present: atraumatic, normocephalic - Eye Eye exam: Present: normal appearance - Expanded Lower Extremity Exam Right Lower Leg exam: Present: full ROM, swelling (Chronic edema), dislocation (Hyperpigmented). Absent: tenderness, ecchymosis, deformity ED Course Vital Signs 04/13/20 02:22 Temperature 98.3 F Pulse Rate 75 Respiratory 18 Rate Blood Pressure 154/107 O2 Sat by Pulse 97 Oximetry ED Medical Decision Making - Medical Decision Making 39-year-old -[place] male with a medical history of bipolar, DVT that is currently on blood thinners chronic lower leg edema chronic leg pain and hypertension presents to the emergency room for right lower leg pain that started last night. Patient is taken nothing for his pain. Patient states he stopped going to the wound care clinic because his caregiver stopped taking them. Patient denies any fever chills no nausea no vomiting. Patient will be discharged home on clindamycin Critical care attestation.: If time is entered above; I have spent that time in minutes in the direct care of this critically ill patient, excluding procedure time. ED Disposition Clinical Impression: Leg wound, right, Bipolar 1 disorder Disposition: - TO HOME OR SELFCARE Is pt being admited?: No Does the pt Need Aspirin: No Condition: Stable Instructions: Wound Infection (ED) Additional Instructions: Complete the antibiotics as prescribed. Follow-up at the wound care clinic. Take Tylenol for pain management. Prescriptions: Clindamycin [Clindamycin CAP] 300 mg PO Q8H 10 Days #30 cap [facility] - 3-5 Days
== END 2020-04-13 04:25 | disposition home or self-care (01) ==
LOC: ED 02:18
DX: S81.801A Unspecified open wound, right lower leg, initial encounter (principal); F31.9 Bipolar disorder, unspecified; I10 Essential (primary) hypertension; Z98.890 Other specified postprocedural states; Z79.899 Other long term (current) drug therapy; X58.XXXA Exposure to other specified factors, initial encounter; Y93.89 Activity, other specified; Y92.89 Other specified places as the place of occurrence of the external cause; Y99.8 Other external cause status
CPT/HCPCS: 99282

== ENCOUNTER 2020-06-06 14:18 | Emergency (ER) | payer MEDICAID ==
[2020-06-06] MEDS ORDERED: NITROGLYCERIN 2% OINT 1 GM TP ONE ×2 (16:06→18:25)
[2020-06-06] MEDS ORDERED: fentaNYL 100 MCG/2 ML INJ IV ONE (16:06)
[2020-06-06] MEDS ORDERED: ONDANSETRON 4 MG/2 ML INJ IV ONE (16:06)
--- NOTE | 2020-06-06 16:10 | Emergency Department Report ---
HPI - General Chief Complaint: Chest Pain PUI?: No Time Seen by Provider: 06/06/20 15:19 - HPI HPI: Room 9 The patient is a 40-year-old male present with a chief complaint of chest pain. The patient states he was walking when he developed substernal chest pain associated with diaphoresis, shortness of breath and nausea without vomiting. Patient gives his pain a score of 4/10. Patient states he is never had a cardiac catheterization ED Past Medical Hx - Past Medical History Previous Medical History?: Yes Hx Hypertension: Yes (on HCTZ) Hx Deep Vein Thrombosis: Yes (on adequate) Hx Psychiatric Treatment: Yes (Bipolar) Additional medical history: Chronic edema. Chronic leg pain. 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 - Family History Family history: no significant - Social History Smoking Status: Never Smoker Substance Use Type: None (Denies illicit drug use) - Medications Home Medications: Home Medications Medication Instructions Recorded Confirmed Last Taken Type LORazepam [Ativan] 1 mg PO TID 06/06/15 04/08/18 Unknown History QUEtiapine [SEROquel] 600 mg PO QHS 06/06/15 04/08/18 Unknown History Apixaban [Eliquis] 5 mg PO BID 04/08/18 04/08/18 Unknown History Benztropine [Cogentin] 1 mg PO QHS 04/08/18 04/08/18 Unknown History Docusate Sodium [Stool Softener] 100 mg PO BID 04/08/18 04/08/18 Unknown History Ondansetron [Zofran Odt] 4 mg PO Q8H PRN #12 tab.rapdis 04/08/18 Unknown Rx Polyethylene Glycol 3350 17 gm PO DAILY 04/08/18 04/08/18 Unknown History [Smoothlax] Simvastatin [Zocor TAB] 40 mg PO QHS 04/08/18 04/08/18 Unknown History Topiramate [Topamax TAB] 50 mg PO BID 04/08/18 04/08/18 Unknown History hydroCHLOROthiazide [HCTZ] 25 mg PO QDAY 04/08/18 04/08/18 Unknown History Amoxicillin/Potassium Clav 1 each PO BID #14 tablet 12/31/19 Unknown Rx [Augmentin 875-125 Tablet] Clindamycin [Clindamycin CAP] 300 mg PO Q8H 10 Days #30 cap 04/13/20 Unknown Rx Chlorhexidine Gluconate [Hibiclens] 10 ml TP BID #240 liquid 05/30/20 Unknown Rx Mupirocin [Bactroban 2%] 15 applic TP TID #15 gm 05/30/20 Unknown Rx Acetaminophen [Tylenol] 500 mg PO Q6HR PRN #20 tablet 05/31/20 Unknown Rx ED Review of Systems ROS: Stated complaint: CP/LEG PAIN Other details as noted in HPI Constitutional: diaphoresis Respiratory: shortness of breath Cardiovascular: chest pain Endocrine: no symptoms reported Gastrointestinal: nausea. denies: vomiting Physical Exam - Physical Exam Vital Signs: Vital Signs 06/06/20 06/06/20 06/06/20 14:42 14:46 15:00 Pulse Rate 138 H 99 H Respiratory 15 21 13 Rate Blood Pressure 172/78 O2 Sat by Pulse 98 98 97 Oximetry 06/06/20 15:20 Pulse Rate Respiratory 13 Rate Blood Pressure O2 Sat by Pulse 97 Oximetry Physical Exam: GENERAL: The patient is well-nourished male sitting on stretcher not appearing to be in acute distress HEENT: Normocephalic. Atraumatic. Extraocular motions are intact. Patient has moist mucous membranes. NECK: Supple. Trachea midline CHEST/LUNGS: Clear to auscultation. There is no respiratory distress noted. HEART/CARDIOVASCULAR: Regular. There is no tachycardia. There is no gallop rub or murmur. ABDOMEN: Abdomen is soft, nontender. Patient has normal bowel sounds. There is no abdominal distention. SKIN: There is no rash. There is no edema. There is no diaphoresis. NEURO: The patient is awake, alert, and oriented. The patient is cooperative. The patient has normal speech MUSCULOSKELETAL: There is no evidence of acute injury. ED Course Vital Signs 06/06/20 06/06/20 06/06/20 14:42 14:46 15:00 Pulse Rate 138 H 99 H Respiratory 15 21 13 Rate Blood Pressure 172/78 O2 Sat by Pulse 98 98 97 Oximetry 06/06/20 15:20 Pulse Rate Respiratory 13 Rate Blood Pressure O2 Sat by Pulse 97 Oximetry ED Medical Decision Making - Lab Data Result diagrams: 06/06/20 15:57 06/06/20 15:57 Laboratory Tests 07/08/1806/06/20 06/06/20 15:57 15:57 15:57 WBC 6.6 RBC 3.89 Hgb 12.1 Hct 36.6 MCV 94 MCH 31 MCHC 33 RDW 15.3 H Plt Count 233 Lymph % (Auto) 31.1 [place] % (Auto) 7.8 H Eos % (Auto) 3.5 Baso % (Auto) 0.8 Lymph # 2.0 [place] # 0.5 Eos # 0.2 Baso # 0.1 Seg Neutrophils % 56.8 Seg Neutrophils # 3.7 PT 13.3 INR 1.03 APTT 25.7 Sodium 137 Potassium 4.8 Chloride 100.2 Carbon Dioxide 24 Anion Gap 18 BUN 11 Creatinine 1.0 Estimated GFR > 60 BUN/Creatinine Ratio 11 Glucose 95 Calcium 9.6 Troponin T < 0.010 - EKG Data -: EKG Interpreted by Me EKG shows normal: sinus rhythm Rate: normal - EKG Data When compared to previous EKG there are: previous EKG unavailable Interpretation: other (No ischemic changes seen) - Radiology Data Radiology results: image reviewed (Chest x-ray) interpreted by me: Chest x-ray-no focal infiltrates, no pneumothorax - Differential Diagnosis ACS, pericarditis, GERD Critical care attestation.: If time is entered above; I have spent that time in minutes in the direct care of this critically ill patient, excluding procedure time. ED Disposition Clinical Impression: Chest pain Disposition: OP ADMIT IP TO THIS HOSP Is pt being admited?: Yes Does the pt Need Aspirin: Yes Condition: Stable Instructions: Chest Pain (ED) Time of Disposition: 17:17 (Hospitalist paged (Dr. Bassett))
[2020-06-06 16:16] LABS: Basophils # (Auto) 0.1 K/mm3 (0.0-0.1); Basophils % (Auto) 0.8 % (0.0-1.8); Eosinophils # (Auto) 0.2 K/mm3 (0.0-0.4); Eosinophils % (Auto) 3.5 % (0.0-4.3); Hematocrit 36.6 % (35.5-45.6); Hemoglobin 12.1 gm/dl (11.8-15.2); Lymphocytes % (Auto) 31.1 % (13.4-35.0); Mean Corpuscular HGB Conc 33 % (32-34); Mean Corpuscular Volume 94 fl (84-94); Monocytes # (Auto) 0.5 K/mm3 (0.0-0.8); Monocytes % (Auto) 7.8 % (0.0-7.3); Platelet Count 233 K/mm3 (140-440); Red Blood Count 3.89 M/mm3 (3.65-5.03); Red Cell Distribution Width 15.3 % (13.2-15.2)
[2020-06-06] MEDS ORDERED: ASPIRIN 325 MG TAB PO ONE (16:17)
--- NOTE | 2020-06-06 16:17 | XRay Report ---
CHEST 1 VIEW 06/06/2020 3:10 PM INDICATION / CLINICAL INFORMATION: Chest pain. COMPARISON: 07/27/2019 FINDINGS: SUPPORT DEVICES: None. HEART / MEDIASTINUM: No significant abnormality. LUNGS / PLEURA: No significant pulmonary or pleural abnormality. No pneumothorax. ADDITIONAL FINDINGS: No significant additional findings. IMPRESSION: 1. No acute findings. Signer Name: Jagjit Garza MD Signed: 06/06/2020 4:12 PM Workstation Name: [id number]
[2020-06-06 16:25] LABS: INR 1.03 (0.87-1.13); Partial Thromboplastin Time 25.7 Sec. (24.2-36.6)
[2020-06-06 16:58] LABS: BUN/Creatinine Ratio 11; Blood Urea Nitrogen 11 mg/dL (9-20); Calcium 9.6 mg/dL (8.4-10.2); Hemolysis Index 14
[2020-06-06] MEDS ORDERED: ONDANSETRON 4 MG/2 ML INJ ONE (18:24)
[2020-06-06] MEDS ORDERED: ASPIRIN 325 MG TAB ONE (18:24)
[2020-06-06] MEDS ORDERED: fentaNYL 100 MCG/2 ML INJ ONE (18:25)
[2020-06-06 21:52] VITALS: BP 157/91
== END 2020-06-06 21:15 | disposition admitted as inpatient to this hospital (09) ==
LOC: ED 14:18
DX: R07.89 Other chest pain (principal); I10 Essential (primary) hypertension; F31.9 Bipolar disorder, unspecified; Z86.718 Personal history of other venous thrombosis and embolism; Z79.01 Long term (current) use of anticoagulants; Z79.899 Other long term (current) drug therapy; Z98.890 Other specified postprocedural states
CPT/HCPCS: 36415; 71045; 80048; 84484; 85025; 85610; 85730; 96374; 96375; 99285; J2405; J3010; 93005

== ENCOUNTER 2020-06-08 16:25 | Emergency (ER) | payer MEDICAID ==
[2020-06-08] MEDS ORDERED: ASPIRIN 325 MG TAB PO ONE (16:39)
[2020-06-08 17:11] LABS: Basophils % (Auto) 0.4 % (0.0-1.8); Eosinophils # (Auto) 0.2 K/mm3 (0.0-0.4); Hemoglobin 11.8 gm/dl (11.8-15.2); Lymphocytes # (Auto) 1.9 K/mm3 (1.2-5.4); Lymphocytes % (Auto) 34.5 % (13.4-35.0); Mean Corpuscular HGB Conc 34 % (32-34); Mean Corpuscular Volume 93 fl (84-94); Monocytes # (Auto) 0.4 K/mm3 (0.0-0.8); Monocytes % (Auto) 8.2 % (0.0-7.3); Platelet Count 210 K/mm3 (140-440); Red Blood Count 3.77 M/mm3 (3.65-5.03); Red Cell Distribution Width 15.5 % (13.2-15.2)
--- NOTE | 2020-06-08 17:20 | XRay Report ---
CHEST 2 VIEWS INDICATION: Chest Pain. COMPARISON: 06/06/2020. FINDINGS: Support devices: None. Heart: Within normal limits. Lungs/Pleura: No acute air space or interstitial disease. No significant pleural effusion. IMPRESSION: No acute findings. Signer Name: Kelby Jacobs MD Signed: 06/08/2020 5:16 PM Workstation Name: [id number]
[2020-06-08 17:21] LABS: INR 1.02 (0.87-1.13)
[2020-06-08 17:22] LABS: Partial Thromboplastin Time 26.2 Sec. (24.2-36.6)
[2020-06-08 17:44] LABS: Alanine Aminotransferase 29 units/L (7-56); Albumin 4.5 g/dL (3.9-5); BUN/Creatinine Ratio 13; Blood Urea Nitrogen 14 mg/dL (9-20); Calcium 9.3 mg/dL (8.4-10.2); Hemolysis Index 10
--- NOTE | 2020-06-08 18:08 | Emergency Department Report ---
ED Chest Pain HPI - General Chief Complaint: Chest Pain Stated Complaint: CHESP PAIN Time Seen by Provider: 06/08/20 16:50 Source: patient Mode of arrival: Ambulatory Limitations: Altered Mental Status - History of Present Illness Initial Comments: Patient is a 40-year-old F [place] male with a history of diabetes hypertension who states he was being harassed by police and they were going to arrest him for no reason according to the patient he started developing chest pain. He states he has some heaviness in the chest shortness of breath palpitations. Patient keeps saying over and over again that he was being arrested for no reason and actually seems to be more fixated on detailing the incident with the police as opposed to his current chest pain. He does state that he is still having pain despite this incident happening at least over an hour ago. Pain Location: substernal Pain Radiation: none Severity: moderate Severity scale (0 -10): 6 Quality: heaviness Consistency: constant Improves With: nothing Worsens With: nothing - Related Data Home Medications Medication Instructions Recorded Confirmed Last Taken LORazepam [Ativan] 1 mg PO TID 06/06/15 04/08/18 Unknown QUEtiapine [SEROquel] 600 mg PO QHS 06/06/15 04/08/18 Unknown Apixaban [Eliquis] 5 mg PO BID 04/08/18 04/08/18 Unknown Benztropine [Cogentin] 1 mg PO QHS 04/08/18 04/08/18 Unknown Docusate Sodium [Stool Softener] 100 mg PO BID 04/08/18 04/08/18 Unknown Polyethylene Glycol 3350 17 gm PO DAILY 04/08/18 04/08/18 Unknown [Smoothlax] Simvastatin [Zocor TAB] 40 mg PO QHS 04/08/18 04/08/18 Unknown Topiramate [Topamax TAB] 50 mg PO BID 04/08/18 04/08/18 Unknown hydroCHLOROthiazide [HCTZ] 25 mg PO QDAY 04/08/18 04/08/18 Unknown Previous Rx's Medication Instructions Recorded Last Taken Type Ondansetron [Zofran Odt] 4 mg PO Q8H PRN #12 tab.rapdis 04/08/18 Unknown Rx Amoxicillin/Potassium Clav 1 each PO BID #14 tablet 12/31/19 Unknown Rx [Augmentin 875-125 Tablet] Clindamycin [Clindamycin CAP] 300 mg PO Q8H 10 Days #30 cap 04/13/20 Unknown Rx Chlorhexidine Gluconate [Hibiclens] 10 ml TP BID #240 liquid 05/30/20 Unknown Rx Mupirocin [Bactroban 2%] 15 applic TP TID #15 gm 05/30/20 Unknown Rx Acetaminophen [Tylenol] 500 mg PO Q6HR PRN #20 tablet 05/31/20 Unknown Rx Allergies Allergy/AdvReac Type Severity Reaction Status Date / Time No Known Allergies Allergy Verified 07/27/19 17:23 Heart Score - HEART Score History: Moderately suspicious EKG: Normal Age: < 45 Risk factors: 1-2 risk factors Troponin: < normal limit HEART Score: 2 ED Review of Systems ROS: Stated complaint: CHESP PAIN Other details as noted in HPI Comment: All other systems reviewed and negative ED Past Medical Hx - Past Medical History Hx Hypertension: Yes (on HCTZ) Hx Deep Vein Thrombosis: Yes (on adequate) Hx Psychiatric Treatment: Yes (Bipolar) Additional medical history: Chronic edema. Chronic leg pain. 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 - Social History Smoking Status: Never Smoker - Medications Home Medications: Home Medications Medication Instructions Recorded Confirmed Last Taken Type LORazepam [Ativan] 1 mg PO TID 06/06/15 04/08/18 Unknown History QUEtiapine [SEROquel] 600 mg PO QHS 06/06/15 04/08/18 Unknown History Apixaban [Eliquis] 5 mg PO BID 04/08/18 04/08/18 Unknown History Benztropine [Cogentin] 1 mg PO QHS 04/08/18 04/08/18 Unknown History Docusate Sodium [Stool Softener] 100 mg PO BID 04/08/18 04/08/18 Unknown History Ondansetron [Zofran Odt] 4 mg PO Q8H PRN #12 tab.rapdis 04/08/18 Unknown Rx Polyethylene Glycol 3350 17 gm PO DAILY 04/08/18 04/08/18 Unknown History [Smoothlax] Simvastatin [Zocor TAB] 40 mg PO QHS 04/08/18 04/08/18 Unknown History Topiramate [Topamax TAB] 50 mg PO BID 04/08/18 04/08/18 Unknown History hydroCHLOROthiazide [HCTZ] 25 mg PO QDAY 04/08/18 04/08/18 Unknown History Amoxicillin/Potassium Clav 1 each PO BID #14 tablet 12/31/19 Unknown Rx [Augmentin 875-125 Tablet] Clindamycin [Clindamycin CAP] 300 mg PO Q8H 10 Days #30 cap 04/13/20 Unknown Rx Chlorhexidine Gluconate [Hibiclens] 10 ml TP BID #240 liquid 05/30/20 Unknown Rx Mupirocin [Bactroban 2%] 15 applic TP TID #15 gm 05/30/20 Unknown Rx Acetaminophen [Tylenol] 500 mg PO Q6HR PRN #20 tablet 05/31/20 Unknown Rx ED Physical Exam - General Limitations: Altered Mental Status General appearance: alert, in no apparent distress - Head Head exam: Present: atraumatic, normocephalic - Eye Eye exam: Present: normal appearance - ENT ENT exam: Present: mucous membranes moist - Neck Neck exam: Present: normal inspection - Respiratory Respiratory exam: Present: normal lung sounds bilaterally. Absent: respiratory distress, wheezes, rales, rhonchi - Cardiovascular Cardiovascular Exam: Present: regular rate, normal rhythm. Absent: normal heart sounds, systolic murmur, diastolic murmur, rubs, gallop - GI/Abdominal GI/Abdominal exam: Present: soft, normal bowel sounds. Absent: distended, tenderness, guarding - Rectal Rectal exam: Present: deferred - Extremities Exam Extremities exam: Present: normal inspection - Back Exam Back exam: Present: normal inspection - Neurological Exam Neurological exam: Present: alert, oriented X3 - Psychiatric Psychiatric exam: Present: normal affect, normal mood - Skin Skin exam: Present: warm, dry, intact, normal color. Absent: rash ED Course Vital Signs 06/08/20 16:33 Temperature 98.3 F Pulse Rate 83 Blood Pressure 143/85 RAMOS score - Ramos Score Age > 65: (0) No Aspirin use within the Past 7 Days: (0) No 3 or more CAD Risk Factors: (0) No 2 or more Angina events in past 24 hrs: (0) No Known CAD with more than 50% Stenosis: (0) No Elevated Cardiac Markers: (0) No ST Deviation Greater than 0.5mm: (0) No RAMOS Score: 0 ED Medical Decision Making - Lab Data Result diagrams: 06/08/20 17:02 06/08/20 17:02 Lab Results 06/08/20 06/08/20 06/08/20 Range/Units 17:02 17:02 17:02 WBC 5.4 (4.5-11.0) K/mm3 RBC 3.77 (3.65-5.03) M/mm3 Hgb 11.8 (11.8-15.2) gm/dl Hct 35.0 L (35.5-45.6) % MCV 93 (84-94) fl MCH 31 (28-32) pg MCHC 34 (32-34) % RDW 15.5 H (13.2-15.2) % Plt Count 210 (140-440) K/mm3 Lymph % (Auto) 34.5 (13.4-35.0) % [place] % (Auto) 8.2 H (0.0-7.3) % Eos % (Auto) 3.0 (0.0-4.3) % Baso % (Auto) 0.4 (0.0-1.8) % Lymph # 1.9 (1.2-5.4) K/mm3 [place] # 0.4 (0.0-0.8) K/mm3 Eos # 0.2 (0.0-0.4) K/mm3 Baso # 0.0 (0.0-0.1) K/mm3 Seg Neutrophils % 53.9 (40.0-70.0) % Seg Neutrophils # 2.9 (1.8-7.7) K/mm3 PT 13.2 (12.2-14.9) Sec. INR 1.02 (0.87-1.13) APTT 26.2 (24.2-36.6) Sec. Sodium 138 (137-145) mmol/L Potassium 4.7 (3.6-5.0) mmol/L Chloride 100.2 (98-107) mmol/L Carbon Dioxide 24 (22-30) mmol/L Anion Gap 19 mmol/L BUN 14 (9-20) mg/dL Creatinine 1.1 (0.8-1.5) mg/dL Estimated GFR > 60 ml/min BUN/Creatinine Ratio 13 % Glucose 99 (75-100) mg/dL Calcium 9.3 (8.4-10.2) mg/dL Total Bilirubin < 0.20 (0.1-1.2) mg/dL AST 65 H (5-40) units/L ALT 29 (7-56) units/L Alkaline Phosphatase 71 (35-129) units/L Troponin T < 0.010 (0.00-0.029) ng/mL Total Protein 7.7 (6.3-8.2) g/dL Albumin 4.5 (3.9-5) g/dL Albumin/Globulin Ratio 1.4 % /10/18 Range/Units 18:53 WBC (4.5-11.0) K/mm3 RBC (3.65-5.03) M/mm3 Hgb (11.8-15.2) gm/dl Hct (35.5-45.6) % MCV (84-94) fl MCH (28-32) pg MCHC (32-34) % RDW (13.2-15.2) % Plt Count (140-440) K/mm3 Lymph % (Auto) (13.4-35.0) % [place] % (Auto) (0.0-7.3) % Eos % (Auto) (0.0-4.3) % Baso % (Auto) (0.0-1.8) % Lymph # (1.2-5.4) K/mm3 [place] # (0.0-0.8) K/mm3 Eos # (0.0-0.4) K/mm3 Baso # (0.0-0.1) K/mm3 Seg Neutrophils % (40.0-70.0) % Seg Neutrophils # (1.8-7.7) K/mm3 PT (12.2-14.9) Sec. INR (0.87-1.13) APTT (24.2-36.6) Sec. Sodium (137-145) mmol/L Potassium (3.6-5.0) mmol/L Chloride (98-107) mmol/L Carbon Dioxide (22-30) mmol/L Anion Gap mmol/L BUN (9-20) mg/dL Creatinine (0.8-1.5) mg/dL Estimated GFR ml/min BUN/Creatinine Ratio % Glucose (75-100) mg/dL Calcium (8.4-10.2) mg/dL Total Bilirubin (0.1-1.2) mg/dL AST (5-40) units/L ALT (7-56) units/L Alkaline Phosphatase (35-129) units/L Troponin T < 0.010 (0.00-0.029) ng/mL Total Protein (6.3-8.2) g/dL Albumin (3.9-5) g/dL Albumin/Globulin Ratio % - EKG Data -: EKG Interpreted by Vt EKG shows normal: sinus rhythm, axis, intervals, QRS complexes, ST-T waves Rate: normal - EKG Data Interpretation: normal EKG - Radiology Data Ordering Physician: JAMES CARRANZA MD Date of Service: 06/08/20 Procedure(s): XR chest routine 2V Accession Number(s): [id number] cc: JAMES CARRANZA MD Fluoro Time In Minutes: CHEST 2 VIEWS INDICATION: Chest Pain. COMPARISON: 06/06/2020. FINDINGS: Support devices: None. Heart: Within normal limits. Lungs/Pleura: No acute air space or interstitial disease. No significant pleural effusion. IMPRESSION: No acute findings. Signer Name: Kelby Jacobs MD Signed: 06/08/2020 5:16 PM Workstation Name: [id number] - Medical Decision Making Patient is a 40-year-old F [place] male with past medical history of hypertension diabetes who is presenting with chest discomfort. Patient is was under emotional stress at the time that he was having the chest discomfort as he was being arrested by police. They have released him from custody and he is here to get checked out for his chest pain. Patient over time states his pain is resolved he is refusing any pain medications. Said 2- troponins. His heart score is 2 and patient is a good candidate for outpatient cardiology follow-up. Patient will be discharged home at this time. Critical care attestation.: If time is entered above; I have spent that time in minutes in the direct care of this critically ill patient, excluding procedure time. ED Disposition Clinical Impression: Atypical chest pain Disposition: DC-01 TO HOME OR SELFCARE Is pt being admited?: No Does the pt Need Aspirin: No Condition: Stable Instructions: Chest Pain (ED) Referrals: KELSEY RUIZ MD [Staff Physician] - 3-5 Days Time of Disposition: 19:39
[2020-06-08] MEDS ORDERED: KETOROLAC 30 MG/1 ML INJ IV ONE (18:25)
[2020-06-08 20:11] VITALS: BP 139/83
== END 2020-06-08 19:50 | disposition home or self-care (01) ==
LOC: ED 16:25
DX: R07.89 Other chest pain (principal); R06.02 Shortness of breath; R00.2 Palpitations; I10 Essential (primary) hypertension; F31.9 Bipolar disorder, unspecified; Z86.718 Personal history of other venous thrombosis and embolism; Z98.890 Other specified postprocedural states; Z88.2 Allergy status to sulfonamides; Z88.8 Allergy status to other drugs, medicaments and biological substances
CPT/HCPCS: 36415; 71046; 80053; 84484; 85025; 85610; 85730; 93005; J1885

== ENCOUNTER 2020-06-29 01:52 | Emergency (ER) | payer MEDICAID ==
[2020-06-29 04:23] VITALS: BP 149/92
--- NOTE | 2020-06-29 04:33 | Emergency Department Report ---
HPI - General Chief Complaint: Medical Clearance Time Seen by Provider: 06/29/20 04:25 - HPI HPI: This is a 40-year-old male presents to the emergency department via [facility] for a mental health evaluation. The patient was at [facility] with his caregiver and became upset when the caregiver would not buy him food there. For this reason the patient called 911 and he was brought to the emergency department to "talk to someone." Patient has a history of bipolar disorder and schizophrenia on psychiatric medications and the patient says he is compliant. He has a medical history of previous DVT on anticoagulation, hypertension. The patient says that there was no physical or verbal altercation with the caregiver. He denies any hallucinations, suicidal or homicidal ideations. ED Past Medical Hx - Past Medical History Previous Medical History?: Yes Hx Hypertension: Yes (on HCTZ) Hx Deep Vein Thrombosis: Yes (on adequate) Hx Psychiatric Treatment: Yes (Bipolar) Additional medical history: Chronic edema. Chronic leg pain. 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 - Social History Smoking Status: Never Smoker Substance Use Type: None - Medications Home Medications: Home Medications Medication Instructions Recorded Confirmed Last Taken Type LORazepam [Ativan] 1 mg PO TID 06/06/15 04/08/18 Unknown History QUEtiapine [SEROquel] 600 mg PO QHS 06/06/15 04/08/18 Unknown History Apixaban [Eliquis] 5 mg PO BID 04/08/18 04/08/18 Unknown History Benztropine [Cogentin] 1 mg PO QHS 04/08/18 04/08/18 Unknown History Docusate Sodium [Stool Softener] 100 mg PO BID 04/08/18 04/08/18 Unknown History Ondansetron [Zofran Odt] 4 mg PO Q8H PRN #12 tab.rapdis 04/08/18 Unknown Rx Polyethylene Glycol 3350 17 gm PO DAILY 04/08/18 04/08/18 Unknown History [Smoothlax] Simvastatin [Zocor TAB] 40 mg PO QHS 04/08/18 04/08/18 Unknown History Topiramate [Topamax TAB] 50 mg PO BID 04/08/18 04/08/18 Unknown History hydroCHLOROthiazide [HCTZ] 25 mg PO QDAY 04/08/18 04/08/18 Unknown History Amoxicillin/Potassium Clav 1 each PO BID #14 tablet 12/31/19 Unknown Rx [Augmentin 875-125 Tablet] Clindamycin [Clindamycin CAP] 300 mg PO Q8H 10 Days #30 cap 04/13/20 Unknown Rx Chlorhexidine Gluconate [Hibiclens] 10 ml TP BID #240 liquid 05/30/20 Unknown Rx Mupirocin [Bactroban 2%] 15 applic TP TID #15 gm 05/30/20 Unknown Rx Acetaminophen [Tylenol] 500 mg PO Q6HR PRN #20 tablet 05/31/20 Unknown Rx ED Review of Systems ROS: Stated complaint: MH EVAL Other details as noted in HPI Comment: All other systems reviewed and negative Constitutional: denies: fever Respiratory: denies: shortness of breath Cardiovascular: denies: chest pain Gastrointestinal: denies: abdominal pain Musculoskeletal: denies: back pain Neurological: denies: headache, weakness Psychiatric: denies: auditory hallucinations, visual hallucinations, homicidal thoughts, suicidal thoughts Physical Exam - Physical Exam Vital Signs: Vital Signs 06/29/20 06/29/20 02:02 04:16 Temperature 97.6 F 97.3 F L Pulse Rate 78 64 Respiratory 20 18 Rate Blood Pressure 117/61 Blood Pressure 149/92 [Left] O2 Sat by Pulse 98 97 Oximetry Physical Exam: GENERAL: The patient is well-developed well-nourished. HENT: Normocephalic. Atraumatic. Patient has moist mucous membranes. EYES: Extraocular motions are intact. NECK: Supple. Trachea is midline. CHEST/LUNGS: Clear to auscultation. There is no respiratory distress noted. HEART/CARDIOVASCULAR: Regular. There is no tachycardia. ABDOMEN: Abdomen is soft, nontender. Patient has normal bowel sounds. SKIN: Skin is warm and dry. NEURO: The patient is awake, alert, and cooperative. Normal speech. MUSCULOSKELETAL: There is no tenderness or deformity. There is no limitation range of motion. ED Course Vital Signs 06/29/20 06/29/20 02:02 04:16 Temperature 97.6 F 97.3 F L Pulse Rate 78 64 Respiratory 20 18 Rate Blood Pressure 117/61 Blood Pressure 149/92 [Left] O2 Sat by Pulse 98 97 Oximetry ED Medical Decision Making - Medical Decision Making This patient was seen here earlier today. He returned, after calling the police himself, when his pallet sorter would not buy him any food at [employer] and he became upset. However he denies any physical or verbal altercation with the caregiver. This was confirmed with the caregiver, Leo Mcneill. Patient denies any hallucinations, suicidal or homicidal ideations. At the time of my examination he is calm and appropriate and just asking for discharge back to the personal alf. The caregiver has no concerns with patient returning and the patient does not appear to meet criteria for being made a 1013 or requiring involuntary inpatient stabilization. Critical Care Time: No Critical care attestation.: If time is entered above; I have spent that time in minutes in the direct care of this critically ill patient, excluding procedure time. ED Disposition Clinical Impression: Schizophrenia Qualifiers: Schizophrenia type: unspecified Qualified Code(s): F20.9 - Schizophrenia, unspecified Disposition: DC-01 TO HOME OR SELFCARE Is pt being admited?: No Condition: Stable Instructions: Schizophrenia (ED) Additional Instructions: Please follow-up with your primary care physician. Please follow-up with either the [facility], or your psychiatrist. Return to the emergency department with any concerns, thoughts of harming herself or others, or with any acute distress. Referrals: PRIMARY CARE, [Primary Care Provider] - 2-3 Days [facility] [Outside] - 2-3 Days Time of Disposition: 04:33
== END 2020-06-29 04:52 | disposition home or self-care (01) ==
LOC: ED 01:52
DX: F20.89 Other schizophrenia (principal); I10 Essential (primary) hypertension; F31.9 Bipolar disorder, unspecified; Z79.899 Other long term (current) drug therapy; Z86.718 Personal history of other venous thrombosis and embolism; Z79.01 Long term (current) use of anticoagulants
CPT/HCPCS: 99282

== ENCOUNTER 2020-07-30 06:52 | Day surgery (SDC) | payer MEDICAID ==
[2020-07-30] MEDS ORDERED: DEXMEDETOMIDINE 200 MCG/2 ML VIAL IV ONE (07:35)
--- NOTE | 2020-07-30 07:49 | Anesthesia Consultation ---
Anesthesia Consult and Med Hx Date of service: 07/30/20 - Airway Anesthetic Teeth Evaluation: Good ROM Head & Neck: Adequate Mental/Hyoid Distance: Adequate Mallampati Class: Class III Intubation Access Assessment: Probably Good - Pulmonary Exam CTA: Yes - Cardiac Exam Cardiac Exam: RRR - Pre-Operative Health Status ASA Pre-Surgery Classification: ASA3 Proposed Anesthetic Plan: MAC - Pulmonary Hx Smoking: No Hx Respiratory Symptoms: No - Cardiovascular System Hx Hypertension: Yes Hx Heart Attack/AMI: No Hx Percutaneous Transluminal Coronary Angioplasty (PTCA): No Hx Cardia Arrhythmia: No - Central Nervous System CVA: No Hx Psychiatric Problems: Yes (bipolar disorder, schizophrenia) - Gastrointestinal Hx Gastroesophageal Reflux Disease: No - Endocrine Hx Renal Disease: No Hx Liver Disease: No Hx Insulin Dependent Diabetes: No Hx Non-Insulin Dependent Diabetes: No Hx Thyroid Disease: No - Hematic Hx Anemia: No - Other Systems Hx Cancer: No Hx Obesity: Yes (BMI 46)
--- NOTE | 2020-07-30 07:50 | Anesthesia Day of Surgery ---
Anesthesia Day of Surgery - Day of Surgery Patient Examined: Yes Patient H&P Reviewed: Yes Patient is NPO: Yes
[2020-07-30 08:09] LABS: Basophils % (Auto) 0.6 % (0.0-1.8); Eosinophils # (Auto) 0.2 K/mm3 (0.0-0.4); Eosinophils % (Auto) 3.3 % (0.0-4.3); Hemoglobin 11.9 gm/dl (11.8-15.2); Lymphocytes # (Auto) 2.5 K/mm3 (1.2-5.4); Lymphocytes % (Auto) 43.5 % (13.4-35.0); Mean Corpuscular HGB Conc 34 % (32-34); Mean Corpuscular Volume 91 fl (84-94); Monocytes # (Auto) 0.6 K/mm3 (0.0-0.8); Monocytes % (Auto) 10.5 % (0.0-7.3); Platelet Count 207 K/mm3 (140-440); Red Blood Count 3.83 M/mm3 (3.65-5.03); Red Cell Distribution Width 15.1 % (13.2-15.2)
[2020-07-30] MEDS ORDERED: HEPARIN/NS 5000 UNIT/500ML 1,000 ML IR ONE (08:12)
[2020-07-30] MEDS ORDERED: SODIUM CHLORIDE 0.9% 500 ML 0 ML ONE (08:13)
[2020-07-30] MEDS ORDERED: LIDOCAINE (2%) 20 MG/1 ML VIAL 20 ML MDV INFILTRATI ONE (08:13)
[2020-07-30] MEDS ORDERED: ceFAZolin/Water 2 GM/20 ML 2 GM/20 ML SYRINGE IV ONE (08:13)
[2020-07-30 08:16] LABS: INR 0.9 (0.87-1.13)
[2020-07-30 08:17] LABS: Partial Thromboplastin Time 24.1 Sec. (24.2-36.6)
[2020-07-30 08:25] LABS: BUN/Creatinine Ratio 20; Blood Urea Nitrogen 16 mg/dL (9-20); Calcium 9.3 mg/dL (8.4-10.2); Hemolysis Index 6
[2020-07-30] MEDS: SODIUM CHLORIDE 0.9% 1000 ML 1,000 ML IV SCH ×2 (08:36→08:50)
--- NOTE | 2020-07-30 08:50 | Short Stay Summary ---
Short Stay Documentation Date of service: 07/30/20 Narrative H&P: 40-year-old male with intellectual deficiency who presents with lower extremity venous ulcerations with severe deep venous stenotic issues secondary to prior DVT and extrinsic compression with resultant wounds of the lower extremity. Patient previously presented for IVC filter removal which was successful. He now presents for ileo-caval reconstruction. - History Principal diagnosis: Extrinsic compression of vein, post thrombotic syndrome, IVC stenosis and i H&P: obtained from office Past Medical History: DVT, other (Venous ulcerations, intellectual deficiency) Past Surgical History: Other (Prior IVC filter placement and removal) Social history: other ([facility]) - Allergies and Medications Current Medications: Allergies No Known Allergies Allergy (Verified 07/27/19 17:23) Home Medications Medication Instructions Recorded Confirmed Last Taken Type LORazepam [Ativan] 1 mg PO TID 06/06/15 07/16/20 07/15/20 History 1 tab QUEtiapine [SEROquel] 600 mg PO QHS 06/06/15 07/16/20 07/15/20 History 1 tab Apixaban [Eliquis] 5 mg PO BID 04/08/18 07/16/20 07/15/20 History 1 tab Benztropine [Cogentin] 1 mg PO QHS 04/08/18 07/16/20 07/15/20 History 1 tab Docusate Sodium [Stool Softener] 100 mg PO BID 04/08/18 07/16/20 Unknown History Ondansetron [Zofran Odt] 4 mg PO Q8H PRN #12 tab.rapdis 04/08/18 07/16/20 Unknown Rx Polyethylene Glycol 3350 17 gm PO DAILY 04/08/18 07/16/20 Unknown History [Smoothlax] Simvastatin [Zocor TAB] 40 mg PO QHS 04/08/18 07/16/20 07/15/20 History 1 tab Topiramate [Topamax TAB] 50 mg PO BID 04/08/18 07/16/20 Unknown History hydroCHLOROthiazide [HCTZ] 25 mg PO QDAY 04/08/18 07/16/20 Unknown History Amoxicillin/Potassium Clav 1 each PO BID #14 tablet 12/31/19 07/16/20 Unknown Rx [Augmentin 875-125 Tablet] Clindamycin [Clindamycin CAP] 300 mg PO Q8H 10 Days #30 cap 04/13/20 07/16/20 Unknown Rx Chlorhexidine Gluconate [Hibiclens] 10 ml TP BID #240 liquid 05/30/20 07/16/20 Unknown Rx Mupirocin [Bactroban 2%] 15 applic TP TID #15 gm 05/30/20 07/16/20 Unknown Rx Acetaminophen [Tylenol] 500 mg PO Q6HR PRN #20 tablet 05/31/20 07/16/20 Unknown Rx Active Medications Sodium Chloride (Nacl 0.9% 1000 Ml) 1,000 mls @ 42 mls/hr IV DIRECT CALLUM Last Admin: 07/30/20 08:36 Dose: 42 mls/hr Documented by: - Physical exam General appearance: mild distress (Lower extremity venous ulcers have associated pain) Lungs: Normal air movement Gastrointestinal: obese Extremities: normal temperature, normal color - Brief post op/procedure progress note Date of procedure: 07/30/20 Pre-op diagnosis: Extrinsic compression of vein, post thrombotic syndrome, chronic DVT Post-op diagnosis: same Procedure: 1. Ultrasound guided access of the right superficial femoral vein 2. Ultrasound guided access of the left superficial femoral vein 3. Venography of the bilateral lower extremities and pelvic veins 4. Selection of the IVC with venography 5. Intravascular ultrasound of the IVC, right common iliac vein, right external iliac vein, right common femoral vein, left common iliac vein, left external iliac vein, and left common femoral vein 6. Angioplasty of the IVC and right common iliac vein and left common iliac vein with a 14 mm x 40 mm [place] balloon 7. Angioplasty of the IVC with a 18 mm x 40 mm [place] balloon 8. Stenting of the IVC with a 20 mm x 80 mm Venovo stent 9. Angioplasty of the right external iliac vein and right common femoral vein with a 14 mm x 40 mm [place] balloon 10. Angioplasty of the left external iliac vein and left common femoral vein with a 14 mm x 40 mm [place] balloon 11. Stenting of the right common iliac vein with a 14 mm x 160 mm Venovo stent 12. Stenting of the left common iliac vein with a 14 mm x 160 mm Venovo stent 13. Stenting of the right external iliac vein with a 14 mm x 120 mm Venovo stent 14. Stenting of the left external iliac vein with a 14 mm x 120 mm Venovo stent Anesthesia: MAC Surgeon: FLORY RAMOS Estimated blood loss: minimal Condition: stable - Hospital course Hospital course: Patient tolerated procedure well. Was flat for 2 hrs. Provided anticoagulation. No issues. 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 Continue anticoagulation. Take Eliquis 5 mg PM dose tonight (07/30/2020) and continue Eliquis doses tomorrow. ) Follow up with: CHERELLE ESTEVES MD [Primary Care Provider] - 7 Days
[2020-07-30] MEDS ORDERED: ONDANSETRON 4 MG/2 ML INJ ONE (08:56)
[2020-07-30] MEDS ORDERED: fentaNYL 100 MCG/2 ML INJ ONE (08:56)
[2020-07-30] MEDS: HEPARIN 10,000 UNITS/10 ML VIAL ONE ×4 (09:39→11:20)
[2020-07-30] MEDS ORDERED: HEPARIN/NS 5000 UNIT/500ML 500 ML IR ONE (10:32)
[2020-07-30] MEDS ORDERED: HEPARIN 10,000 UNITS/10 ML VIAL ONE (11:30)
[2020-07-30] MEDS ORDERED: APIXABAN 5 MG TAB ONE (11:30)
--- NOTE | 2020-07-30 13:32 | Operative Report ---
Operative Report Operative Report: EXAM: 1. Ultrasound guided access of the right superficial femoral vein 2. Ultrasound guided access of the left superficial femoral vein 3. Venography of the bilateral lower extremities and pelvic veins 4. Selection of the IVC with venography 5. Intravascular ultrasound of the IVC, right common iliac vein, right external iliac vein, right common femoral vein, left common iliac vein, left external iliac vein, and left common femoral vein 6. Angioplasty of the IVC and right common iliac vein and left common iliac vein with a 14 mm x 40 mm [place] balloon 7. Angioplasty of the IVC with a 18 mm x 40 mm [place] balloon 8. Selection of the right renal vein and left renal vein with angiography of the right and left renal vein. 9. Stenting of the IVC with a 20 mm x 80 mm Venovo stent 10. Angioplasty of the right external iliac vein and right common femoral vein with a 14 mm x 40 mm [place] balloon 11. Angioplasty of the left external iliac vein and left common femoral vein with a 14 mm x 40 mm [place] balloon 12. Stenting of the right common iliac vein with a 14 mm x 160 mm Venovo stent 13. Stenting of the left common iliac vein with a 14 mm x 160 mm Venovo stent 14. Stenting of the right external iliac vein with a 14 mm x 120 mm Venovo stent 15. Stenting of the left external iliac vein with a 14 mm x 120 mm Venovo stent DATE: 07/30/2020 DIRECTOR PROCESS IMPROVEMENT: FLORY RAMOS MD INDICATION: Bilateral lower extremity venous ulcers with extrinsic compression of the IVC and bilateral iliac veins with prior IVC filter and probable IVC occlusion with recanalization with severe post thrombotic syndrome of the IVC and bilateral iliac veins with chronic deep venous thrombus noted. MEDICATIONS: Please see nursing report for full details. DEVICES: 20 mm x 80 mm Venovo stent - IVC 14 mm x 160 mm Venovo stent - R CIV 14 mm x 160 mm Venovo stent - L CIV 14 mm x 120 mm Venovo stent - R EIV 14 mm x 120 mm Venovo stent - L EIV CONTRAST: Please see Pbx Operator report for full details. PROCEDURE: The risks, benefits, and alternatives were discussed with the patient; written informed consent was obtained. The patient was brought to the angiography table in stable condition and anesthesia was provided with MAC. The groins were prepped and draped in a sterile fashion. Ultrasound was used to evaluate the right and left proximal superficial femoral arteries which were patent. Under direct ultrasound guidance, the right femoral vein was accessed with a 21-gauge micropuncture needle. 0.018 inch wire was p assed into the right iliac veins. Needle was exchanged for transitional dilator. Wire was exchanged for a 0.035 inch Amplatz wire. Transitional dilator was exchanged for a 5 Moroccan sheath. Under direct ultrasound guidance, the left femoral vein was accessed with a 21- gauge micropuncture needle. 0.018 inch wire was passed into the left iliac veins. Needle was exchanged for transitional dilator. Wire was exchanged for a 0.035 inch Amplatz wire. Transitional dilator was exchanged for a 5 Moroccan sheath. Digital subtraction angiography was performed through the sheath demonstrating patency of the femoral veins with severe synechiae, and findings concerning for extrinsic compression with moderate to severe stenosis in the left common iliac vein, and left external iliac vein. The right common iliac vein and the right external iliac vein have multifocal 50% narrowings with extrinsic compression signs and extensive synechiae. There are numerous collaterals in the pelvis. The IVC had numerous synechiae with severe narrowing throughout the vessel with numerous collaterals around it and findings concerning for extrinsic compression. The suprarenal IVC was patent. The right and left common femoral vein had 40% to 50% narrowing and had synechiae and some findings concerning for extrinsic compression. The patient was heparinized. The sheaths were exchanged for 10 Moroccan sheaths. Intravascular ultrasound was used demonstrating near 99% narrowings of the IVC (infrarenal), severe 90% narrowings in the left common iliac vein, and synechiae with 50% narrowings in the left external iliac vein. There is synechiae in the left common iliac vein. There are multifocal areas of synechiae with 50% narrowing of the right common iliac vein, external iliac vein, and common femoral vein. There are also findings of extrinsic compression on all of these vessels. 14 mm x 40 mm angioplasty balloon was used to perform angioplasty of the infrarenal IVC and bilateral common iliac veins, and bilateral external iliac veins. Digital subtraction angiography was performed demonstrating improved flow but high-grade multifocal residual narrowings. 18 mm x 40 mm angioplasty balloon was then used to perform angioplasty of the infrarenal IVC throughout its course. Digital subtraction angiography was performed demonstrating improved flow but moderate residual narrowing of the IVC. The right and left renal veins were selected and digital subtraction angiography was performed demonstrating some findings concerning for prior synechiae in the right renal vein, with patency of the left renal vein. The right renal vein ostium was well demonstrated. 20 mm x 80 mm Venovo stent was then deployed beneath the renal veins in the infrarenal IVC. This was then postdilated with an 18 mm angioplasty balloon. 14 mm x 160 mm Venovo stent was then deployed in the right common iliac vein which extended into the IVC stent. 14 mm x 160 mm Venovo stent was then deployed in the left common iliac vein which extended into the IVC stent. This was done simultaneously creating a kissing configuration. These were postdilated with 14 mm angioplasty balloons. Digital subtraction angiography was performed demonstrating patency of the stented segments, but residual high-grade narrowing of the left external iliac vein and synechiae with irregularity in the right external iliac vein. 14 mm x 120 mm Venovo stent was then deployed in the right external iliac vein. 14 mm x 120 mm Venovo stent was then deployed in the left external iliac vein. These were post dilated with 14 mm angioplasty balloons. The right common femoral vein and left common femoral vein were then treated with 14 mm angioplasty balloons. Digital subtraction angiography from the right groin sheath was performed d emonstrating excellent flow through the stented segment with minimal residual narrowing in the right common femoral vein. Digital subtraction angiography in the left groin sheath was performed demonstrating excellent flow through the stented segments with minimal residual narrowing in the left common femoral vein. There is brisk flow through the IVC, bilateral common iliac veins, bilateral external iliac veins, and bilateral common femoral veins. At this point, all wires, catheters, and sheaths removed. Pressure was held until hemostasis was achieved. Sterile dressing applied. Patient was immediately provided Eliquis upon awakening and tolerated procedure without issue. FINDINGS: Please see procedure note above. IMPRESSION: Successful stenting of the IVC, bilateral common iliac veins, bilateral external iliac veins, and angioplasty of the bilateral common femoral veins as described above.
[2020-07-30 13:37] VITALS: BP 130/83
--- NOTE | 2020-07-30 13:53 | Post Anesthesia Evaluation ---
- Post Anesthesia Evaluation Patient Participated: Yes Airway Patent: Yes Stable Respiratory Function: Yes Nausea/Vomiting: No Temp > 96.8F: Yes Pain Manageable: Yes Adequeate Hydration: Yes Anesthesia Complications: No Block Receding Appropriately: Not Applicable Patient on Ventilator: No
== END 2020-07-30 14:30 | disposition home or self-care (01) ==
LOC: CATHLABREC 06:52
PROVIDERS: ATTEND Radiology Diagnostic Radiology
DX: I82.523 Chronic embolism and thrombosis of iliac vein, bilateral (principal); I82.221 Chronic embolism and thrombosis of inferior vena cava; I87.1 Compression of vein; E78.00 Pure hypercholesterolemia, unspecified; I10 Essential (primary) hypertension; E66.9 Obesity, unspecified; F31.9 Bipolar disorder, unspecified; Z98.890 Other specified postprocedural states; Z79.899 Other long term (current) drug therapy; Z95.828 Presence of other vascular implants and grafts; Z68.42 Body mass index [BMI] 45.0-49.9, adult
CPT/HCPCS: 36011; 36415; 37238; 37239; 37248; 37249; 37252; 37253; 75822; 75833; 76937; 80048; 85025; 85610; 85730; C1725; C1753; C1769; C1876; C1894; J0690; J1644; J2405; J2704; J3010; J3490; J7030; J7040; Q9967

== ENCOUNTER 2021-06-24 03:05 | Emergency (ER) | payer MEDICAID ==
[2021-06-24] MEDS ORDERED: ASPIRIN 325 MG TAB PO ONE (03:23)
--- NOTE | 2021-06-24 03:47 | XRay Report ---
CHEST 2 VIEWS INDICATION / CLINICAL INFORMATION: chest pain. COMPARISON: None available. FINDINGS: SUPPORT DEVICES: None. HEART / MEDIASTINUM: No significant abnormality. LUNGS / PLEURA: No significant pulmonary abnormality. There are small pleural effusions. No pneumotho rax. ADDITIONAL FINDINGS: No significant additional findings. IMPRESSION: Small pleural effusions without other acute findings. Signer Name: Tevin Nguyen MD Signed: 06/24/2021 3:42 AM Workstation Name: [id number]
[2021-06-24 04:14] VITALS: BP 149/83
[2021-06-24 04:20] LABS: Alanine Aminotransferase 13 units/L (7-56); Albumin 4.1 g/dL (3.9-5); Blood Urea Nitrogen 13 mg/dL (9-20); Calcium 9.7 mg/dL (8.4-10.2); Hemolysis Index 3
[2021-06-24 04:22] LABS: Basophils % (Auto) 0.4 % (0.0-1.8); Eosinophils # (Auto) 0.1 K/mm3 (0.0-0.4); Eosinophils % (Auto) 1.8 % (0.0-4.3); Hematocrit 32.9 % (35.5-45.6); Hemoglobin 11.1 gm/dl (11.8-15.2); Lymphocytes # (Auto) 2.8 K/mm3 (1.2-5.4); Lymphocytes % (Auto) 45.9 % (13.4-35.0); Mean Corpuscular HGB Conc 34 % (32-34); Mean Corpuscular Volume 95 fl (84-94); Monocytes # (Auto) 0.6 K/mm3 (0.0-0.8); Monocytes % (Auto) 9.1 % (0.0-7.3); Platelet Count 142 K/mm3 (140-440); Red Blood Count 3.47 M/mm3 (3.65-5.03); Red Cell Distribution Width 15.1 % (13.2-15.2)
[2021-06-24 04:33] LABS: BUN/Creatinine Ratio 19
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
--- NOTE | 2021-06-24 10:38 | Electrocardiograph Report ---
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
== END 2021-06-24 06:10 | disposition home or self-care (01) ==
LOC: ED 03:05
DX: F41.1 Generalized anxiety disorder (principal); F43.0 Acute stress reaction; R07.9 Chest pain, unspecified; I10 Essential (primary) hypertension; E11.8 Type 2 diabetes mellitus with unspecified complications; F31.9 Bipolar disorder, unspecified; Z98.890 Other specified postprocedural states
CPT/HCPCS: 36415; 71046; 80053; 84484; 85025; 93005; 99283

== ENCOUNTER 2021-07-05 00:15 | Emergency (ER) | payer MEDICAID ==
[2021-07-05 01:30] LABS: Basophils % (Auto) 0.4 % (0.0-1.8); Eosinophils # (Auto) 0.1 K/mm3 (0.0-0.4); Eosinophils % (Auto) 1.7 % (0.0-4.3); Hematocrit 32.7 % (35.5-45.6); Hemoglobin 11.1 gm/dl (11.8-15.2); Lymphocytes # (Auto) 2.8 K/mm3 (1.2-5.4); Lymphocytes % (Auto) 47.9 % (13.4-35.0); Mean Corpuscular HGB Conc 34 % (32-34); Mean Corpuscular Volume 95 fl (84-94); Monocytes # (Auto) 0.5 K/mm3 (0.0-0.8); Monocytes % (Auto) 8.3 % (0.0-7.3); Platelet Count 174 K/mm3 (140-440); Red Blood Count 3.43 M/mm3 (3.65-5.03); Red Cell Distribution Width 16.2 % (13.2-15.2)
[2021-07-05 01:49] LABS: BUN/Creatinine Ratio 14; Blood Urea Nitrogen 13 mg/dL (9-20); Calcium 9.1 mg/dL (8.4-10.2); Hemolysis Index 3
[2021-07-05 08:52] VITALS: BP 131/77
--- NOTE | 2021-07-05 10:28 | Emergency Department Report ---
HPI - General Chief Complaint: Medical Clearance Time Seen by Provider: 07/05/21 10:21 - HPI HPI: Hallway 7 The patient is a 41-year-old male present with a chief complaint of "around with a fci." Patient states he ran away from his fci last night because there was "too much going on." Patient states he came to the emergency department to find a way back to his fci. Patient denies having any complaints. Patient denies suicidal or homicidal ideation ED Past Medical Hx - Past Medical History Previous Medical History?: Yes Hx Hypertension: Yes Hx Diabetes: Yes Hx Deep Vein Thrombosis: Yes (on adequate) Hx Psychiatric Treatment: Yes (Bipolar; anxiety and depression) Additional medical history: Chronic edema. Chronic leg pain. Psych disorder - Surgical History Past Surgical History?: Yes Additional Surgical History: leg surgery, amputation of fingers of the right h and - Family History Family history: no significant - Social History Smoking Status: Never Smoker Substance Use Type: None - Medications Home Medications: Home Medications Medication Instructions Recorded Confirmed Last Taken Type LORazepam [Ativan] 1 mg PO TID 06/06/15 07/30/20 07/29/20 History QUEtiapine [SEROquel] 600 mg PO QHS 06/06/15 07/30/20 07/29/20 History Apixaban [Eliquis] 5 mg PO BID 04/08/18 07/30/20 07/29/20 History Benztropine [Cogentin] 1 mg PO QHS 04/08/18 07/30/20 07/29/20 History Docusate Sodium [Stool Softener] 100 mg PO BID 04/08/18 07/30/20 07/29/20 History Ondansetron [Zofran Odt] 4 mg PO Q8H PRN #12 tab.rapdis 04/08/18 07/30/20 07/29/20 Rx Polyethylene Glycol 3350 17 gm PO DAILY 04/08/18 07/30/20 07/29/20 History [Smoothlax] Simvastatin (NF) [Zocor TAB] 40 mg PO QHS 04/08/18 07/30/20 07/29/20 History Topiramate [Topamax TAB] 50 mg PO BID 04/08/18 07/30/20 07/29/20 History hydroCHLOROthiazide [HCTZ] 25 mg PO QDAY 04/08/18 07/30/20 07/29/20 History Amoxicillin/Potassium Clav 1 each PO BID #14 tablet 12/31/19 07/30/20 07/29/20 Rx [Augmentin 875-125 Tablet] Clindamycin [Clindamycin CAP] 300 mg PO Q8H 10 Days #30 cap 04/13/20 07/30/20 07/29/20 Rx Chlorhexidine Gluconate [Hibiclens] 10 ml TP BID #240 liquid 05/30/20 07/30/20 07/29/20 Rx Mupirocin [Bactroban 2%] 15 applic TP TID #15 gm 05/30/20 07/30/20 07/29/20 Rx Acetaminophen [Tylenol] 500 mg PO Q6HR PRN #20 tablet 05/31/20 07/30/20 07/29/20 Rx ED Review of Systems ROS: Stated complaint: MH EVAL Other details as noted in HPI Constitutional: no symptoms reported Eyes: denies: eye pain ENT: denies: throat pain Respiratory: no symptoms reported Cardiovascular: denies: chest pain Endocrine: no symptoms reported Gastrointestinal: denies: abdominal pain Genitourinary: denies: dysuria Musculoskeletal: denies: back pain Neurological: denies: headache Psychiatric: denies: homicidal thoughts, suicidal thoughts Physical Exam - Physical Exam Vital Signs: Vital Signs 07/05/21 07/05/21 00:23 08:47 Temperature 98.2 F 97.7 F Pulse Rate 93 H 62 Respiratory 19 20 Rate Blood Pressure 131/77 Blood Pressure 133/79 [Left] O2 Sat by Pulse 97 100 Oximetry Physical Exam: GENERAL: The patient is well-developed well-nourished []. [] HEENT: Normocephalic. Atraumatic. Extraocular motions are intact. Patient has moist mucous membranes. NECK: Supple. Trachea midline CHEST/LUNGS: Clear to auscultation. There is no respiratory distress noted. HEART/CARDIOVASCULAR: Regular. There is no tachycardia. There is no gallop rub or murmur. ABDOMEN: Abdomen is soft, nontender. Patient has normal bowel sounds. There is no abdominal distention. SKIN: There is no rash. There is no edema. There is no diaphoresis. NEURO: The patient is awake, alert, and oriented. The patient is cooperative. The patient has no focal neurologic deficits. The patient has normal speech. GCS 15 MUSCULOSKELETAL: There is no evidence of acute injury. ED Course Vital Signs 07/05/21 07/05/21 00:23 08:47 Temperature 98.2 F 97.7 F Pulse Rate 93 H 62 Respiratory 19 20 Rate Blood Pressure 131/77 Blood Pressure 133/79 [Left] O2 Sat by Pulse 97 100 Oximetry ED Medical Decision Making - Lab Data Result diagrams: 07/05/21 00:42 07/05/21 00:42 Laboratory Tests 07/05/21 07/05/21 07/05/21 00:42 00:42 00:42 WBC RBC Hgb Hct MCV MCH MCHC RDW Plt Count Lymph % (Auto) Frederick % (Auto) Eos % (Auto) Baso % (Auto) Lymph # (Auto) Frederick # (Auto) Eos # (Auto) Baso # (Auto) Seg Neutrophils % Seg Neutrophils # Sodium 140 Potassium 4.6 Chloride 102.5 Carbon Dioxide 25 Anion Gap 17 BUN 13 Creatinine 0.9 Estimated GFR > 60 BUN/Creatinine Ratio 14 Glucose 100 Calcium 9.1 Salicylates < 0.3 L Acetaminophen 5.0 L Plasma/Serum Alcohol 07/05/21 07/05/21 00:42 00:42 WBC 5.9 RBC 3.43 L Hgb 11.1 L Hct 32.7 L MCV 95 H MCH 32 MCHC 34 RDW 16.2 H Plt Count 174 Lymph % (Auto) 47.9 H Frederick % (Auto) 8.3 H Eos % (Auto) 1.7 Baso % (Auto) 0.4 Lymph # (Auto) 2.8 Frederick # (Auto) 0.5 Eos # (Auto) 0.1 Baso # (Auto) 0.0 Seg Neutrophils % 41.7 Seg Neutrophils # 2.5 Sodium Potassium Chloride Carbon Dioxide Anion Gap BUN Creatinine Estimated GFR BUN/Creatinine Ratio Glucose Calcium Salicylates Acetaminophen Plasma/Serum Alcohol < 0.01 - Differential Diagnosis Run away Critical care attestation.: If time is entered above; I have spent that time in minutes in the direct care of this critically ill patient, excluding procedure time. ED Disposition Clinical Impression: Behavior involving running away Disposition: DC-01 TO HOME OR SELFCARE Is pt being admited?: No Does the pt Need Aspirin: No Condition: Stable Additional Instructions: Return to the emergency department should you develop worsening symptoms, inabil ity to tolerate food or liquids, high fever or any other concerns Referrals: PRIMARY CARE, [Primary Care Provider] - 3-5 Days Time of Disposition: 10:28 (dc to fci (coming to picking supervisor patient))
== END 2021-07-05 10:35 | disposition home or self-care (01) ==
LOC: ED 00:15
DX: F91.8 Other conduct disorders (principal); I10 Essential (primary) hypertension; E11.9 Type 2 diabetes mellitus without complications; F41.9 Anxiety disorder, unspecified; F31.9 Bipolar disorder, unspecified
CPT/HCPCS: 36415; 80048; 80320; 85025; 99283; G0480

== ENCOUNTER 2021-12-26 06:46 | Emergency (ER) | payer MEDICAID ==
[2021-12-26 09:01] VITALS: BP 152/88
[2021-12-26] MEDS ORDERED: ACETAMINOPHEN 500 MG TAB PO ONE (09:06)
--- NOTE | 2021-12-26 09:10 | Emergency Department Report ---
ED Extremity Problem HPI - General Chief complaint: Extremity Injury, Lower Stated complaint: LEG PAIN Time Seen by Provider: 12/26/21 09:03 Source: patient Mode of arrival: Ambulatory Limitations: No Limitations - History of Present Illness Initial comments: 41-year-old morbid obese -[place] male with a past medical history of bipolar 1 presents to the emergency room complaining of right leg pain and swelling for the last 3 days. Patient has a history of chronic DVT and is currently on Coumadin. Patient has an appointment today with Dr. Low at 2 PM. Patient states that his pain pain with was increasing. He has not taken anything for his discomfort. States that he lives in a correction and came by his caregiver. MD Complaint: extremity pain, extremity swelling Location: right, lower extremity History of Same: Yes -: Yes myalgia Radiation: distal Severity scale (0 -10): 5 Quality: aching, sharp Consistency: constant Improves with: nothing Worsens with: nothing - Related Data Home Medications Medication Instructions Recorded Confirmed Last Taken LORazepam [Ativan] 1 mg PO TID 06/06/15 07/30/20 07/29/20 QUEtiapine [SEROquel] 600 mg PO QHS 06/06/15 07/30/20 07/29/20 Apixaban [Eliquis] 5 mg PO BID 04/08/18 07/30/20 07/29/20 Benztropine [Cogentin] 1 mg PO QHS 04/08/18 07/30/20 07/29/20 Docusate Sodium [Stool Softener] 100 mg PO BID 04/08/18 07/30/20 07/29/20 Polyethylene Glycol 3350 17 gm PO DAILY 04/08/18 07/30/20 07/29/20 [Smoothlax] Simvastatin (NF) [Zocor TAB] 40 mg PO QHS 04/08/18 07/30/20 07/29/20 Topiramate [Topamax TAB] 50 mg PO BID 04/08/18 07/30/20 07/29/20 hydroCHLOROthiazide [HCTZ] 25 mg PO QDAY 04/08/18 07/30/20 07/29/20 Previous Rx's Medication Instructions Recorded Last Taken Type Ondansetron [Zofran Odt] 4 mg PO Q8H PRN #12 tab.rapdis 04/08/18 07/29/20 Rx Amoxicillin/Potassium Clav 1 each PO BID #14 tablet 12/31/19 07/29/20 Rx [Augmentin 875-125 Tablet] Clindamycin [Clindamycin CAP] 300 mg PO Q8H 10 Days #30 cap 04/13/20 07/29/20 Rx Chlorhexidine Gluconate [Hibiclens] 10 ml TP BID #240 liquid 05/30/20 07/29/20 Rx Mupirocin [Bactroban 2%] 15 applic TP TID #15 gm 05/30/20 07/29/20 Rx Acetaminophen [Tylenol] 500 mg PO Q6HR PRN #20 tablet 05/31/20 07/29/20 Rx Allergies Allergy/AdvReac Type Severity Reaction Status Date / Time No Known Allergies Allergy Verified 07/27/19 17:23 ED Review of Systems ROS: Stated complaint: LEG PAIN Other details as noted in HPI Comment: All other systems reviewed and negative ED Past Medical Hx - Past Medical History Hx Hypertension: Yes Hx Heart Attack/AMI: No Hx Diabetes: Yes Hx Deep Vein Thrombosis: Yes (on adequate) Hx Liver Disease: No Hx Renal Disease: No Hx Psychiatric Treatment: Yes (Bipolar; anxiety and depression) Additional medical history: Chronic edema. Chronic leg pain. 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 - Social History Smoking Status: Never Smoker Substance Use Type: None - Medications Home Medications: Home Medications Medication Instructions Recorded Confirmed Last Taken Type LORazepam [Ativan] 1 mg PO TID 06/06/15 07/30/20 07/29/20 History QUEtiapine [SEROquel] 600 mg PO QHS 06/06/15 07/30/20 07/29/20 History Apixaban [Eliquis] 5 mg PO BID 04/08/18 07/30/20 07/29/20 History Benztropine [Cogentin] 1 mg PO QHS 04/08/18 07/30/20 07/29/20 History Docusate Sodium [Stool Softener] 100 mg PO BID 04/08/18 07/30/20 07/29/20 History Ondansetron [Zofran Odt] 4 mg PO Q8H PRN #12 tab.rapdis 04/08/18 07/30/20 07/29/20 Rx Polyethylene Glycol 3350 17 gm PO DAILY 04/08/18 07/30/20 07/29/20 History [Smoothlax] Simvastatin (NF) [Zocor TAB] 40 mg PO QHS 04/08/18 07/30/20 07/29/20 History Topiramate [Topamax TAB] 50 mg PO BID 04/08/18 07/30/20 07/29/20 History hydroCHLOROthiazide [HCTZ] 25 mg PO QDAY 04/08/18 07/30/20 07/29/20 History Amoxicillin/Potassium Clav 1 each PO BID #14 tablet 12/31/19 07/30/20 07/29/20 Rx [Augmentin 875-125 Tablet] Clindamycin [Clindamycin CAP] 300 mg PO Q8H 10 Days #30 cap 04/13/20 07/30/20 07/29/20 Rx Chlorhexidine Gluconate [Hibiclens] 10 ml TP BID #240 liquid 05/30/20 07/30/20 07/29/20 Rx Mupirocin [Bactroban 2%] 15 applic TP TID #15 gm 05/30/20 07/30/20 07/29/20 Rx Acetaminophen [Tylenol] 500 mg PO Q6HR PRN #20 tablet 05/31/20 07/30/20 07/29/20 Rx ED Physical Exam - General Limitations: No Limitations General appearance: alert, in no apparent distress - Head Head exam: Present: atraumatic, normocephalic - Eye Eye exam: Present: normal appearance, PERRL - ENT ENT exam: Present: normal external ear exam - Neck Neck exam: Present: normal inspection, full ROM - Respiratory Respiratory exam: Absent: respiratory distress, accessory muscle use - Cardiovascular Cardiovascular Exam: Present: regular rate - Expanded Lower Extremity Exam Right Hip exam: Present: normal inspection, full ROM Upper Leg exam: Present: normal inspection, full ROM Knee exam: Present: normal inspection, full ROM Lower Leg exam: Present: tenderness, swelling Ankle exam: Present: full ROM, tenderness, swelling Neuro vascular tendon exam: Present: no vascular compromise. Absent: pulse deficit ED Course Vital Signs 12/26/21 08:58 Temperature 98.5 F Pulse Rate 84 Respiratory 17 Rate Blood Pressure 152/88 O2 Sat by Pulse 99 Oximetry ED Medical Decision Making - Medical Decision Making 41-year-old morbid obese -[place] male with a past medical history of bipolar 1 presents to the emergency room complaining of right leg pain and swelling for the last 3 days. Patient has a history of chronic DVT and is currently on Coumadin. Patient has an appointment today with Dr. Low at 2 PM. Patient states that his pain pain with was increasing. He has not taken anything for his discomfort. States that he lives in a correction and came by his caregiver. Patient is given acetaminophen 1 g p.o. for pain management. Patient is encouraged to keep his appointment with his vascular specialist Dr. Ramos today at 2 PM Critical care attestation.: If time is entered above; I have spent that time in minutes in the direct care of this critically ill patient, excluding procedure time. ED Disposition Clinical Impression: DVT (deep venous thrombosis) Disposition: 01 HOME / SELF CARE / HOMELESS Is pt being admited?: No Does the pt Need Aspirin: No Condition: Stable Additional Instructions: Please keep your appointment with Dr. Banuelos your vascular doctor at 2 PM. You can take [id number] Tylenol for pain management. Referrals: FLORY RAMOS MD [Staff Physician] - 3-5 Days Time of Disposition: 09:18
== END 2021-12-26 10:33 | disposition home or self-care (01) ==
LOC: ED 06:46
DX: I82.401 Acute embolism and thrombosis of unspecified deep veins of right lower extremity (principal); I10 Essential (primary) hypertension; E11.9 Type 2 diabetes mellitus without complications; F31.9 Bipolar disorder, unspecified
CPT/HCPCS: 99282

== ENCOUNTER 2022-01-23 00:10 | Emergency (ER) | payer MEDICAID ==
[2022-01-23 00:51] VITALS: BP 131/65
== END 2022-01-23 04:57 | disposition left against medical advice (07) ==
LOC: ED 00:10
DX: Z04.6 Encounter for general psychiatric examination, requested by authority (principal); Z53.21 Procedure and treatment not carried out due to patient leaving prior to being seen by health care provider

== ENCOUNTER 2022-02-01 23:12 | Emergency (ER) | payer MEDICAID ==
[2022-02-01 23:14] VITALS: BP 155/97
[2022-02-02] MEDS ORDERED: LORazepam 1 MG TAB PO ONE (00:38)
[2022-02-02] MEDS ORDERED: DIVALPROEX DR 500 MG TAB PO ONE (00:38)
[2022-02-02] MEDS ORDERED: ACETAMINOPHEN 500 MG TAB PO ONE (00:39)
[2022-02-02 01:25] LABS: Alanine Aminotransferase 29 units/L (7-56); Albumin 4.6 g/dL (3.9-5); BUN/Creatinine Ratio 19; Blood Urea Nitrogen 15 mg/dL (9-20); Calcium 9.4 mg/dL (8.4-10.2); Hemolysis Index 13
[2022-02-02 01:26] LABS: Basophils % (Auto) 0.3 % (0.0-1.8); Eosinophils # (Auto) 0.1 K/mm3 (0.0-0.4); Eosinophils % (Auto) 2.4 % (0.0-4.3); Hematocrit 36.4 % (35.5-45.6); Hemoglobin 11.9 gm/dl (11.8-15.2); Lymphocytes # (Auto) 1.7 K/mm3 (1.2-5.4); Lymphocytes % (Auto) 29.6 % (13.4-35.0); Mean Corpuscular HGB Conc 33 % (32-34); Mean Corpuscular Volume 92 fl (84-94); Monocytes # (Auto) 0.5 K/mm3 (0.0-0.8); Monocytes % (Auto) 9.3 % (0.0-7.3); Platelet Count 216 K/mm3 (140-440); Red Blood Count 3.98 M/mm3 (3.65-5.03); Red Cell Distribution Width 15.5 % (13.2-15.2)
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
[2022-02-02 01:40] LABS: Bilirubin,Urine NEG (Negative); Blood,Urine NEG (Negative); Color,Urine Yellow (Yellow); Mucus,Urine FEW /HPF; Protein,Urine <15 mg/dL mg/dL (Negative); Urobilinogen,Urine < 2.0 mg/dL (<2.0); WBC,Urine < 1.0 /HPF (0.0-6.0)
[2022-02-02 01:48] LABS: Amphetamine Screen,Urine PRESUMPTIVE NEGATIVE; Benzodiazepines Screen,Urine PRESUMPTIVE NEGATIVE; Cannabinoid Screen,Urine PRESUMPTIVE NEGATIVE; Cocaine Screen,Urine PRESUMPTIVE NEGATIVE; Methadone Screen,Urine PRESUMPTIVE NEGATIVE; Opiate Screen,Urine PRESUMPTIVE NEGATIVE
== END 2022-02-02 02:10 | disposition home or self-care (01) ==
LOC: ED 23:12
DX: F31.30 Bipolar disorder, current episode depressed, mild or moderate severity, unspecified (principal); I89.0 Lymphedema, not elsewhere classified; Z79.899 Other long term (current) drug therapy; I10 Essential (primary) hypertension; E11.8 Type 2 diabetes mellitus with unspecified complications; F31.9 Bipolar disorder, unspecified
CPT/HCPCS: 36415; 80053; 80307; 81001; 84443; 85025; 99284